=== PATIENT | female | born 1980 | race Caucasian/White ===

== ENCOUNTER 2019-07-21 12:59 | Outpatient (CLI) | payer OTHER ==
[2019-07-21 13:47] VITALS: BP 126/77
--- NOTE | 2019-07-23 12:29 | PROCEDURE REPORT ---
- HPI Diagnosis/Indication for NST: Polyhydramnios (32.2 weeks) Current EDU 09/13/19 Gestation 32 Weeks and 2 Days 4 Para 3 Vital Signs Temperature 36.7 C 07/21/19 13:03 Heart Rate 106 H 07/21/19 13:03 Respiratory Rate 07/21/19 13:03 Blood Pressure 126/77 07/21/19 13:03 O2 Saturation 99 07/21/19 13:03 Temperature 36.7 C 07/21/19 13:03 Heart Rate 106 H 07/21/19 13:03 Respiratory Rate 07/21/19 13:03 Blood Pressure 126/77 07/21/19 13:03 O2 Saturation 99 07/21/19 13:03 - NST Procedure NST Procedure Start Date 07/21/19 Start Time 13:00 Stop Time 13:59 Vibroacoustic Stimulation Used Yes Patient States Movement Yes - Results and Plan Findings/Impression: reactive NST continue serial NST
== END 2019-07-21 14:10 | disposition home or self-care (01) ==
LOC: WFO 12:59 → FBP 13:06 → WFO 14:10
PROVIDERS: ATTEND Obstetrics & Gynecology
DX: O40.3XX0 Polyhydramnios, third trimester, not applicable or unspecified (principal); Z3A.32 32 weeks gestation of pregnancy
CPT/HCPCS: 59025

== ENCOUNTER 2019-07-28 13:11 | Outpatient (CLI) | payer OTHER ==
[2019-07-28 14:33] VITALS: BP 126/78
--- NOTE | 2019-07-28 15:15 | PROCEDURE REPORT ---
- HPI Diagnosis/Indication for NST: Other (AMA/CHTN/Graves Disease) Current EDU 09/13/19 Gestation 33 Weeks and 2 Days 4 Para 3 Vital Signs Temperature 99.1 F 07/28/19 13:02 Heart Rate 93 07/28/19 13:02 Respiratory Rate 18 07/28/19 13:02 Blood Pressure 137/73 H 07/28/19 13:02 Temperature 99.1 F 07/28/19 13:02 Heart Rate 86 07/28/19 13:27 Respiratory Rate 18 07/28/19 13:27 Blood Pressure 126/78 07/28/19 13:27 O2 Saturation - NST Procedure NST Procedure Start Date 07/28/19 Start Time 13:00 Stop Time 13:35 Vibroacoustic Stimulation Used No Patient States Movement No 135 mod susi 15x15 accels no decels TOCO; Quiet - Results and Plan Findings/Impression: Patient is a 39 at 33+3 wga with complicated by AMA, CHTN, Graves Dz here for NST Cat I tracing Has fu appt with Dr. Pedraza on 07/30/19 Cont twice weekly NST
== END 2019-07-28 13:40 | disposition home or self-care (01) ==
LOC: WFO 13:11 → FBP 13:14 → WFO 13:40
PROVIDERS: ATTEND Obstetrics & Gynecology
DX: O10.913 Unspecified pre-existing hypertension complicating pregnancy, third trimester (principal); O99.283 Endocrine, nutritional and metabolic diseases complicating pregnancy, third trimester; E05.00 Thyrotoxicosis with diffuse goiter without thyrotoxic crisis or storm; O09.523 Supervision of elderly multigravida, third trimester; Z3A.33 33 weeks gestation of pregnancy
CPT/HCPCS: 59025

== ENCOUNTER 2019-08-12 08:00 | Outpatient (CLI) | payer OTHER ==
[2019-08-12 18:52] LABS: TRICHOMONAS VAGINALIS DNA NEGATIVE (NEGATIVE)
== END 2019-08-12 23:59 | disposition home or self-care (01) ==
LOC: LAB.R 08:00
PROVIDERS: ATTEND Obstetrics & Gynecology
DX: Z36.85 Encounter for antenatal screening for Streptococcus B (principal)
CPT/HCPCS: 87491; 87591; 87661; 87797

== ENCOUNTER 2019-08-15 15:03 | Outpatient (CLI) | payer OTHER ==
--- NOTE | 2019-08-17 04:15 | Ultrasound Report ---
Reason: CHRONIC HYPERTENSION/HIGH RISK Procedure Date: 08/15/2019 Accession Number: [id number] / [id number] Procedure: US - OB F/U or Repeat CPT Code: Final Report FULL RESULT: EXAM: FOLLOW-UP OBSTETRICAL ULTRASOUND EXAM DATE: 08/15/2019 03:55 PM. CLINICAL HISTORY: CHRONIC HYPERTENSION/HIGH RISK. COMPARISON: Reports of previous ultrasound dated 04/25/2019 from [facility], 05/02/2019 and 05/08/2019 from [facility]. TECHNIQUE: Real-time sonographic evaluation of the fetus performed by the medical assistant dermatology. Multiple practice representative static images were saved for review. DATING: Established EGA 36 weeks 0 days with JOSÉ MIGUEL 09/12/2019 based on LMP. EGA 36 weeks 2 days with JOSÉ MIGUEL 09/10/2019 based on the current ultrasound. GENERAL EVALUATION [place] . Cardiac activity: 135 bpm. movement: Visualized. Presentation: Cephalic. Placenta: Anterior position. Amniotic fluid: Normal. FELICIA 17.5 cm. MVP 4.9 cm. BIOMETRY Bi-Parietal Diameter (BPD): 9 cm, 36 weeks 3 days Head Circumference (HC): 32.52 cm, 36 weeks 6 days Abdominal Circumference (AC): 33.2 cm, 37 weeks 1 day Femur Length (FL): 6.7 cm, 34 weeks 5 days Estimated Weight: 2928 g, 62nd percentile for 36 weeks 0 days. IMPRESSION: 1. [place] live intrauterine with gestational age 36 weeks 0 days based on LMP. 2. Estimated weight is within expected limits for assigned dating. 3. Normal interval growth compared to 04/25/2019. STEVIE
== END 2019-08-15 15:04 | disposition home or self-care (01) ==
LOC: DI 15:03
PROVIDERS: ATTEND Obstetrics & Gynecology
DX: O10.913 Unspecified pre-existing hypertension complicating pregnancy, third trimester (principal); Z3A.36 36 weeks gestation of pregnancy
CPT/HCPCS: 76816

== ENCOUNTER 2019-08-25 12:39 | Outpatient (CLI) | payer OTHER ==
[2019-08-25 12:50] VITALS: BP 127/68
--- NOTE | 2019-08-27 09:41 | PROCEDURE REPORT ---
- HPI Diagnosis/Indication for NST: Pre- Hypertension (pt on labetolol) Current EDU 09/12/19 Gestation 37 Weeks and 3 Days 4 Para 3 Vital Signs Temperature 37.3 C 08/25/19 12:45 Heart Rate 93 08/25/19 12:45 Respiratory Rate 08/25/19 12:45 Blood Pressure 127/68 08/25/19 12:45 O2 Saturation 97 08/25/19 12:45 Temperature 37.3 C 08/25/19 12:45 Heart Rate 93 08/25/19 12:45 Respiratory Rate 08/25/19 12:45 Blood Pressure 127/68 08/25/19 12:45 O2 Saturation 97 08/25/19 12:45 - NST Procedure NST Procedure Start Date 08/25/19 Start Time 12:41 Stop Time 12:03 Vibroacoustic Stimulation Used No Patient States Movement Yes - Results and Plan Findings/Impression: reactive baseline 145 accelerations Plan: continue NST induce at 39 weeks
== END 2019-08-25 13:14 | disposition home or self-care (01) ==
LOC: WFO 12:39 → FBP 12:40 → WFO 13:14
PROVIDERS: ATTEND Obstetrics & Gynecology
DX: O10.913 Unspecified pre-existing hypertension complicating pregnancy, third trimester (principal); Z3A.37 37 weeks gestation of pregnancy
CPT/HCPCS: 59025

== ENCOUNTER 2019-08-28 13:02 | Outpatient (CLI) | payer OTHER ==
[2019-08-28 13:09] VITALS: BP 128/70
--- NOTE | 2019-09-17 12:05 | PROCEDURE REPORT ---
- HPI Diagnosis/Indication for NST: Other (AMA, CHTN) Current EDU 09/12/19 Gestation 37 Weeks and 6 Days 4 Para 3 Vital Signs Temperature 98.8 F 08/28/19 13:07 Heart Rate 82 08/28/19 13:07 Respiratory Rate 18 08/28/19 13:07 Blood Pressure 128/70 08/28/19 13:07 O2 Saturation 98 08/28/19 13:07 Temperature 98.8 F 08/28/19 13:07 Heart Rate 82 08/28/19 13:07 Respiratory Rate 18 08/28/19 13:07 Blood Pressure 128/70 08/28/19 13:07 O2 Saturation 98 08/28/19 13:07 - NST Procedure NST Procedure Start Date 08/28/19 Start Time 13:00 Stop Time 13:26 Vibroacoustic Stimulation Used No Patient States Movement Yes EFM 135 mod suis 15x15 accels no decels TOCO: quiet - Results and Plan Findings/Impression: 39 yo at 37+6 wga here for NST for CHTN and AMA BP wnl Cat I tracing Cont with twice weekly NST and weekly FELICIA IOL at 39 wga
== END 2019-08-28 13:30 | disposition home or self-care (01) ==
LOC: WFO 13:02 → FBP 13:03 → WFO 13:30
PROVIDERS: ATTEND Obstetrics & Gynecology
DX: O09.523 Supervision of elderly multigravida, third trimester (principal); O10.913 Unspecified pre-existing hypertension complicating pregnancy, third trimester; Z3A.37 37 weeks gestation of pregnancy
CPT/HCPCS: 59025

== ENCOUNTER 2019-09-01 13:00 | Outpatient (CLI) | payer OTHER ==
[2019-09-01 13:14] VITALS: BP 121/71
--- NOTE | 2019-09-04 17:03 | PROCEDURE REPORT ---
- HPI Diagnosis/Indication for NST: Gestational Hypertension Current EDU 09/12/19 Gestation 38 Weeks and 3 Days 4 Para 3 Vital Signs Temperature 37.5 C 09/01/19 13:12 Heart Rate 74 09/01/19 13:12 Respiratory Rate 18 09/01/19 13:12 Blood Pressure 121/71 09/01/19 13:12 O2 Saturation 100 09/01/19 13:12 Temperature 37.5 C 09/01/19 13:12 Heart Rate 74 09/01/19 13:12 Respiratory Rate 18 09/01/19 13:12 Blood Pressure 121/71 09/01/19 13:12 O2 Saturation 100 09/01/19 13:12 - NST Procedure NST Procedure Start Date 09/01/19 Start Time 13:03 Stop Time 13:27 Vibroacoustic Stimulation Used No Patient States Movement Yes - Results and Plan Findings/Impression: reactive nst. Plan: continue antinatal testing
== END 2019-09-01 13:30 | disposition home or self-care (01) ==
LOC: WFO 13:00 → FBP 13:01 → WFO 13:30
PROVIDERS: ATTEND Obstetrics & Gynecology
DX: O24.419 Gestational diabetes mellitus in pregnancy, unspecified control (principal); Z3A.38 38 weeks gestation of pregnancy
CPT/HCPCS: 59025

== ENCOUNTER 2019-09-04 13:05 | Outpatient (CLI) | payer OTHER ==
[2019-09-04 13:11] VITALS: BP 121/68
--- NOTE | 2019-09-17 14:49 | PROCEDURE REPORT ---
- HPI Diagnosis/Indication for NST: Gestational Hypertension Current EDU 09/12/19 Gestation 38 Weeks and 6 Days 4 Para 3 Vital Signs Temperature 36.9 C 09/04/19 13:09 Heart Rate 80 09/04/19 13:09 Respiratory Rate 18 09/04/19 13:09 Blood Pressure 121/68 09/04/19 13:09 O2 Saturation 98 09/04/19 13:09 Temperature 36.9 C 09/04/19 13:09 Heart Rate 80 09/04/19 13:09 Respiratory Rate 18 09/04/19 13:09 Blood Pressure 121/68 09/04/19 13:09 O2 Saturation 98 09/04/19 13:09 - NST Procedure NST Procedure Start Date 09/04/19 Start Time 13:05 Stop Time 13:25 Vibroacoustic Stimulation Used No Patient States Movement Yes - Results and Plan Findings/Impression: reactive NST Plan: Induction tomorrow
== END 2019-09-04 13:35 | disposition home or self-care (01) ==
LOC: WFO 13:05 → FBP 13:07 → WFO 13:35
PROVIDERS: ATTEND Obstetrics & Gynecology
DX: O24.419 Gestational diabetes mellitus in pregnancy, unspecified control (principal); Z3A.38 38 weeks gestation of pregnancy
CPT/HCPCS: 59025

== ENCOUNTER 2019-09-09 14:29 | Observation (INO) | payer OTHER ==
[2019-09-09] MEDS ORDERED: ACETAMINOPHEN 500 MG TABLET PO ONE (14:58)
[2019-09-09] MEDS ORDERED: LABETALOL 20 MG/4 ML SYRINGE IVP ONE (15:07)
[2019-09-09 15:21] LABS: HGB - HEMOGLOBIN 9.5 g/dL (12.0-16.0); MEAN CORPUSCULAR HEMOGLOBIN 28.6 pg (27.0-31.0); MEAN CORPUSCULAR VOLUME 89.5 fL (81.0-99.0); MEAN PLATELET VOLUME 9.2 fL (7.9-10.8); RED BLOOD COUNT 3.32 10^6/uL (4.20-5.40); RED CELL DISTRIBUTION WIDTH 16.2 % (12.0-15.0); WHITE BLOOD COUNT 8.6 x10^3/uL (4.8-10.8)
--- NOTE | 2019-09-09 15:28 | HISTORY & PHYSICAL EXAMINATION ---
Admit History - Visit Reason Visit Reason: Other (39yo POD 4 from unscheduled urgent LTCS in the second stage of labor for non-reassuring status. Her was complicated by chronic HTN on labetalol 200BID, AMA, obesity, h/o Grave's disease, fibromyalgia. Her post op course was uncomplicated and she had no evidence of superimposed preeclampsia. She presented to the nav clinic for a wound check today and was found to have SBP>160. On presentation here, she c/o headache and epigastric pain that started today. No visual changes or vomiting. No fever or respiratory complaints. No dysuria. Normal lochia. Has been taking prescribed pain meds, took ibuprofen and oxycodone within the last 2 hours. No abnormal incisional pain.) - : 4 Parity: 4 Premature: 0 Ectopic: 0 : 0 Care: positive: IWHCARIELLE-Julien Complications This : positive: Other (See above) Smoking Status: Never smoker - Mother's Labs Mother's Blood Type: positive: O Mother's RH: positive: Negative Meds/Allgy - Home Medications Home Medications: Ambulatory Orders Medication Instructions Recorded Confirmed Cetirizine [ZyrTEC] 10 mg PO DAILY 09/09/19 09/09/19 DULoxetine [Cymbalta] 60 mg PO DAILY 09/09/19 09/09/19 Gabapentin [Neurontin] 600 mg PO BID 09/09/19 09/09/19 Ibuprofen [Ibu] 600 mg PO Q6HR PRN 09/09/19 09/09/19 Labetalol [Trandate] 200 mg PO BID 09/09/19 09/09/19 Omeprazole 10 mg PO DAILY 09/09/19 09/09/19 Vit,Calc76/Iron/Folic 1 tab PO DAILY 09/09/19 09/09/19 [Pnv 29-1 Tablet] Sertraline [Zoloft] 75 mg PO DAILY 09/09/19 09/09/19 oxyCODONE [Roxicodone] 5 mg PO Q4-6H PRN 09/09/19 09/09/19 - Allergies Allergies/Adverse Reactions: Allergies Allergy/AdvReac Type Severity Reaction Status Date / Time No Known Drug Allergies Allergy Verified 03/26/15 00:54 Review of Systems - All Other Systems All Other Systems: reports: Other (As noted; otherwise negative) Physical - Abdominal Exam Vital Signs: Temp Pulse Resp BP Pulse Ox 99.5 F 93 22 161/80 H 98 09/09/19 14:35 09/09/19 14:35 09/09/19 14:35 09/09/19 14:40 09/09/19 14:35 Plan for Labor - Plan For Labor Plan for Labor: 39yo POD 4 from unscheduled , previously stable chronic HTN, now with markedly elevated BP in severe range, headache, epigastric pain. Labs sent. Start magnesium, IV labetalol/hydralazine as needed to control BP w goal <130/80. IV fluid Monitor urine output. Exam - Exam Vital Signs: Vital Signs (72 hours) 09/09/19 09/09/19 14:35 14:40 Temperature 99.5 F Heart Rate [ 93 Monitoring electrodes] Respiratory 22 Rate Blood Pressure 165/83 H 161/80 H [Left Brachial artery] Blood Pressure 172/85 H [Right Brachial artery] O2 Saturation 98 General: Alert, Oriented x3, Mild distress Lungs: Clear to auscultation, Normal air movement Cardiovascular: Regular rate (3/6 systolic murmur at upper left sternal border, tachycardia) Abdomen: Soft, No tenderness, Other (Uterus well below umbilicus, incision D&I, no erythem or induration) Extremities: No tenderness/swelling (trace bipedal edema) Neurological: Normal gait, Normal speech Psych/Mental Status: Mental status NL
[2019-09-09 15:35] LABS: ALBUMIN 2.8 g/dL (3.2-5.5); ALBUMIN/GLOBULIN RATIO 0.8 (1.0-2.2); BILIRUBIN,TOTAL 0.5 mg/dL (0.2-1.0); CALCIUM 8.7 mg/dL (8.5-10.3); CREATININE 0.6 mg/dL (0.4-1.0); TOTAL PROTEIN 6.4 g/dL (6.7-8.2)
[2019-09-09] MEDS: LACTATED RINGERS 1,000 ML IV SCH ×2 (15:54→21:24)
[2019-09-09] MEDS: MAGNESIUM SULFATE 2 GRAM 2 GM/50 ML BAG IV SCH ×2 (15:58→16:28)
[2019-09-09] MEDS ORDERED: MAGNESIUM SULFATE IN WATER 20 GM/500 ML IV.SOLN IV SCH (16:00)
--- NOTE | 2019-09-09 16:21 | PROVIDER PROGRESS NOTE ---
Subjective - Prog Note Date Prog Note Date: 09/09/19 Prog Note Time: 16:20 - Subjective Subjective: Feeling better. She reports contractions have decreased in frequency, duration and intensity since fluid bolus. Iron infusing now. Off monitor. Will continue to follow, DC home if feeling well. Objective - Vital Signs/Intake & Output Vital Signs: Vital Signs x48h Temp Pulse Resp BP BP Pulse Ox 09/09/19 14:40 161/80 H 09/09/19 14:35 99.5 F 93 22 165/83 H 172/85 H 98 - Lab Results Fish Bones: 09/09/19 15:14 09/09/19 15:14 Other Labs: Lab Results x24hrs 09/09/19 09/09/19 09/09/19 Range/Units 15:14 15:14 15:14 WBC 8.6 (4.8-10.8) x10^3/uL RBC 3.32 L (4.20-5.40) 10^6/uL Hgb 9.5 L (12.0-16.0) g/dL Hct 29.7 L (37.0-47.0) % MCV 89.5 (81.0-99.0) fL MCH 28.6 (27.0-31.0) pg MCHC 32.0 (32.0-36.0) g/dL RDW 16.2 H (12.0-15.0) % Plt Count 324 (130-450) 10^3/uL MPV 9.2 (7.9-10.8) fL Sodium 137 (135-145) mmol/L Potassium 3.6 (3.5-5.0) mmol/L Chloride 102 (101-111) mmol/L Carbon Dioxide 26 (21-32) mmol/L Anion Gap 9.0 (6-13) BUN 6 (6-20) mg/dL Creatinine 0.6 (0.4-1.0) mg/dL Estimated GFR (MDRD) 111 (>89) Glucose 90 (70-100) mg/dL Uric Acid 3.9 (2.6-7.2) mg/dL Calcium 8.7 (8.5-10.3) mg/dL Total Bilirubin 0.5 (0.2-1.0) mg/dL AST 51 H (10-42) IU/L ALT 48 (10-60) IU/L Alkaline Phosphatase 120 (42-121) IU/L Total Protein 6.4 L (6.7-8.2) g/dL Albumin 2.8 L (3.2-5.5) g/dL Globulin 3.6 (2.1-4.2) g/dL Albumin/Globulin Ratio 0.8 L (1.0-2.2)
[2019-09-09] MEDS ORDERED: IRON DEXTRAN 1,000 MG in SODIUM CHLORIDE 0.9% 250 ML IV ONE (16:29)
--- NOTE | 2019-09-09 16:31 | PROVIDER PROGRESS NOTE ---
Subjective - Prog Note Date Prog Note Date: 09/09/19 Prog Note Time: 16:30 - Subjective Subjective: Labs reviewed. Elevated AST although not quite to twice upper limit of normal. Anemia noted: will give IV iron Add PO nifedipine Objective - Vital Signs/Intake & Output Vital Signs: Vital Signs x48h Temp Pulse Resp BP BP Pulse Ox 09/09/19 14:40 161/80 H 09/09/19 14:35 99.5 F 93 22 165/83 H 172/85 H 98 09/09/19 14:30 210.4 F H 93 18 172/85 H 100 Intake & Output: Intake & Output 09/06/19 09/07/19 09/08/19 09/09/19 23:59 23:59 23:59 23:59 Intake Total 50 Balance 50 - Lab Results Fish Bones: 09/09/19 15:14 09/09/19 15:14 Other Labs: Lab Results x24hrs 09/09/19 09/09/19 09/09/19 Range/Units 15:14 15:14 15:14 WBC 8.6 (4.8-10.8) x10^3/uL RBC 3.32 L (4.20-5.40) 10^6/uL Hgb 9.5 L (12.0-16.0) g/dL Hct 29.7 L (37.0-47.0) % MCV 89.5 (81.0-99.0) fL MCH 28.6 (27.0-31.0) pg MCHC 32.0 (32.0-36.0) g/dL RDW 16.2 H (12.0-15.0) % Plt Count 324 (130-450) 10^3/uL MPV 9.2 (7.9-10.8) fL Sodium 137 (135-145) mmol/L Potassium 3.6 (3.5-5.0) mmol/L Chloride 102 (101-111) mmol/L Carbon Dioxide 26 (21-32) mmol/L Anion Gap 9.0 (6-13) BUN 6 (6-20) mg/dL Creatinine 0.6 (0.4-1.0) mg/dL Estimated GFR (MDRD) 111 (>89) Glucose 90 (70-100) mg/dL Uric Acid 3.9 (2.6-7.2) mg/dL Calcium 8.7 (8.5-10.3) mg/dL Total Bilirubin 0.5 (0.2-1.0) mg/dL AST 51 H (10-42) IU/L ALT 48 (10-60) IU/L Alkaline Phosphatase 120 (42-121) IU/L Total Protein 6.4 L (6.7-8.2) g/dL Albumin 2.8 L (3.2-5.5) g/dL Globulin 3.6 (2.1-4.2) g/dL Albumin/Globulin Ratio 0.8 L (1.0-2.2)
[2019-09-09 17:07] LABS: BILIRUBIN,URINE NEGATIVE (NEGATIVE); GLUCOSE, URINE (UA) NEGATIVE (NEGATIVE); KETONES,URINE (UA) NEGATIVE (NEGATIVE); LEUKOCYTE ESTERASE, URINE NEGATIVE (NEGATIVE); NITRITE,URINE NEGATIVE (NEGATIVE); OCCULT BLOOD,URINE LARGE (NEGATIVE); PH,URINE 7.5 PH (5.0-7.5); PROTEIN,URINE NEGATIVE (NEGATIVE); UROBILINOGEN,URINE 0.2 (NORMAL) E.U./dL (NORMAL)
[2019-09-09 17:13] LABS: CLARITY,URINE CLOUDY (CLEAR)
[2019-09-09 17:18] LABS: CREATININE,URINE 57.4 mg/dL; PROTEIN/CREATININE RATIO,URINE 0.5 (<=0.2)
[2019-09-09] MEDS ORDERED: ONDANSETRON 4 MG/2 ML VIAL IVP PRN (17:27)
[2019-09-09] MEDS: NIFEdipine ER 30 MG TABLET PO SCH (17:59)
--- NOTE | 2019-09-09 18:39 | PROVIDER PROGRESS NOTE ---
Subjective - Prog Note Date Prog Note Date: 09/09/19 Prog Note Time: 18:33 - Subjective Subjective: Pt complains of worsening headache since admission. Epigastric pain improved. Also c/o left shoulder pain with radiation down her arm for the past few days, worse today. Feeling sharp, tingly pain. No numbness. BP's 140's/90's Nifedipine just given No obvious lesion involving shoulder/arm. Strength normal and equal throughout. Labs PC ratio 0.5 Otherwise as noted. A/P Severe preeclampsia by symptom and BP criteria. Continue magnesium. Nifedipine started. Add labetalol as needed. Will try toredol, muscle relaxant and heat for left shoulder/neck/arm and then reevaluate. Objective - Vital Signs/Intake & Output Vital Signs: Vital Signs x48h Temp Pulse Resp BP BP Pulse Ox 09/09/19 18:00 93 20 141/90 H 96 09/09/19 17:46 99.1 F 102 H 16 140/84 H 96 09/09/19 17:30 97 16 149/82 H 99 09/09/19 17:05 98.6 F 94 20 139/73 H 95 09/09/19 16:33 75 18 131/73 H 99 09/09/19 16:30 81 18 142/78 H 99 09/09/19 16:15 98.4 F 78 16 135/76 H 99 09/09/19 15:46 72 18 148/91 H 98 09/09/19 14:45 89 18 154/77 H 97 09/09/19 14:42 91 18 161/80 H 98 09/09/19 14:40 161/80 H 09/09/19 14:37 165/83 H 09/09/19 14:35 99.5 F 93 22 165/83 H 172/85 H 98 09/09/19 14:30 210.4 F H 93 18 172/85 H 100 Intake & Output: Intake & Output 09/06/19 09/07/19 09/08/19 09/09/19 23:59 23:59 23:59 23:59 Intake Total 50 Balance 50 - Lab Results Fish Bones: 09/09/19 15:14 09/09/19 15:14 Other Labs: Lab Results x24hrs 09/09/19 09/09/19 09/09/19 Range/Units 16:48 16:48 15:14 WBC (4.8-10.8) x10^3/uL RBC (4.20-5.40) 10^6/uL Hgb (12.0-16.0) g/dL Hct (37.0-47.0) % MCV (81.0-99.0) fL MCH (27.0-31.0) pg MCHC (32.0-36.0) g/dL RDW (12.0-15.0) % Plt Count (130-450) 10^3/uL MPV (7.9-10.8) fL Sodium (135-145) mmol/L Potassium (3.5-5.0) mmol/L Chloride (101-111) mmol/L Carbon Dioxide (21-32) mmol/L Anion Gap (6-13) BUN (6-20) mg/dL Creatinine (0.4-1.0) mg/dL Estimated GFR (MDRD) (>89) Glucose (70-100) mg/dL Uric Acid 3.9 (2.6-7.2) mg/dL Calcium (8.5-10.3) mg/dL Total Bilirubin (0.2-1.0) mg/dL AST (10-42) IU/L ALT (10-60) IU/L Alkaline Phosphatase (42-121) IU/L Total Protein (6.7-8.2) g/dL Albumin (3.2-5.5) g/dL Globulin (2.1-4.2) g/dL Albumin/Globulin Ratio (1.0-2.2) Urine Color YELLOW Urine Clarity CLOUDY (CLEAR) Urine pH 7.5 (5.0-7.5) PH Ur Specific [place] 1.020 (1.002-1.030) Urine Protein NEGATIVE (NEGATIVE) mg/dL Urine Glucose (UA) NEGATIVE (NEGATIVE) mg/dL Urine Ketones NEGATIVE (NEGATIVE) mg/dL Urine Occult Blood LARGE H (NEGATIVE) Urine Nitrite NEGATIVE (NEGATIVE) Urine Bilirubin NEGATIVE (NEGATIVE) Urine Urobilinogen 0.2 (NORMAL) (NORMAL) E.U./dL Ur Leukocyte Esterase NEGATIVE (NEGATIVE) Urine Creatinine 57.4 mg/dL Ur Total Protein Timed 28 mg/dL Protein/Creatinin Ratio 0.5 H (<=0.2) 09/09/19 09/09/19 Range/Units 15:14 15:14 WBC 8.6 (4.8-10.8) x10^3/uL RBC 3.32 L (4.20-5.40) 10^6/uL Hgb 9.5 L (12.0-16.0) g/dL Hct 29.7 L (37.0-47.0) % MCV 89.5 (81.0-99.0) fL MCH 28.6 (27.0-31.0) pg MCHC 32.0 (32.0-36.0) g/dL RDW 16.2 H (12.0-15.0) % Plt Count 324 (130-450) 10^3/uL MPV 9.2 (7.9-10.8) fL Sodium 137 (135-145) mmol/L Potassium 3.6 (3.5-5.0) mmol/L Chloride 102 (101-111) mmol/L Carbon Dioxide 26 (21-32) mmol/L Anion Gap 9.0 (6-13) BUN 6 (6-20) mg/dL Creatinine 0.6 (0.4-1.0) mg/dL Estimated GFR (MDRD) 111 (>89) Glucose 90 (70-100) mg/dL Uric Acid (2.6-7.2) mg/dL Calcium 8.7 (8.5-10.3) mg/dL Total Bilirubin 0.5 (0.2-1.0) mg/dL AST 51 H (10-42) IU/L ALT 48 (10-60) IU/L Alkaline Phosphatase 120 (42-121) IU/L Total Protein 6.4 L (6.7-8.2) g/dL Albumin 2.8 L (3.2-5.5) g/dL Globulin 3.6 (2.1-4.2) g/dL Albumin/Globulin Ratio 0.8 L (1.0-2.2) Urine Color Urine Clarity (CLEAR) Urine pH (5.0-7.5) PH Ur Specific [place] (1.002-1.030) Urine Protein (NEGATIVE) mg/dL Urine Glucose (UA) (NEGATIVE) mg/dL Urine Ketones (NEGATIVE) mg/dL Urine Occult Blood (NEGATIVE) Urine Nitrite (NEGATIVE) Urine Bilirubin (NEGATIVE) Urine Urobilinogen (NORMAL) E.U./dL Ur Leukocyte Esterase (NEGATIVE) Urine Creatinine mg/dL Ur Total Protein Timed mg/dL Protein/Creatinin Ratio (<=0.2)
[2019-09-09] MEDS ORDERED: LIDOCAINE PATCH 5% TOP PRN (18:42)
[2019-09-09] MEDS ORDERED: tiZANidine 4 MG TABLET PO PRN (18:44)
[2019-09-09] MEDS ORDERED: PROMETHAZINE INJ 25 MG in SODIUM CHLORIDE 0.9% 50 ML IV PRN (19:40)
[2019-09-09] MEDS ORDERED: FAMOTIDINE 20 MG TABLET PO SCH (21:00)
[2019-09-09] MEDS: GABAPENTIN 300 MG CAPSULE PO SCH (21:25)
[2019-09-09] MEDS: KETOROLAC 30 MG/ML VIAL IVP SCH (21:25)
[2019-09-09] MEDS: oxyCODONE 5 MG TABLET PO PRN (21:25)
[2019-09-09] MEDS ORDERED: ACETAMINOPHEN 325 MG TABLET PO PRN (22:00)
[2019-09-10] MEDS: KETOROLAC 30 MG/ML VIAL IVP SCH (03:31)
[2019-09-10] MEDS: oxyCODONE 5 MG TABLET PO PRN (06:17)
[2019-09-10] MEDS ORDERED: PANTOPRAZOLE 40 MG TABLET PO SCH (07:00)
[2019-09-10] MEDS: LACTATED RINGERS 1,000 ML IV SCH (07:15)
[2019-09-10] MEDS ORDERED: PRENATAL VITAMIN TABLET PO SCH (08:00)
[2019-09-10] MEDS ORDERED: SERTRALINE 25 MG TABLET PO SCH (09:00)
[2019-09-10] MEDS ORDERED: DULoxetine 30 MG CAPSULE PO SCH (09:00)
[2019-09-10] MEDS ORDERED: CETIRIZINE 10 MG TABLET PO SCH (09:00)
[2019-09-10] MEDS: NIFEdipine ER 30 MG TABLET PO SCH (09:02)
[2019-09-10] MEDS: GABAPENTIN 300 MG CAPSULE PO SCH (09:03)
--- NOTE | 2019-09-10 09:15 | PROVIDER PROGRESS NOTE ---
Subjective - Prog Note Date Prog Note Date: 09/10/19 Prog Note Time: 09:09 - Subjective Subjective: Feeling much better. Headache gone. No epigastric pain. Shoulder also much improved. BP max 142/74 otherwise 120's/70's Pulse slightly tachy 100-110 sats 95-96 on RA Abd soft, non-tender. No RUQ or epigastric tenderness. A/P Stable. Continue nifedipine with labetalol and her usual meds. Temporarily continue lidocaine patch and muscle relaxant with heat. She will check BP's at home. Precautions discussed. Objective - Vital Signs/Intake & Output Vital Signs: Vital Signs x48h Temp Pulse Resp BP Pulse Ox 09/10/19 08:30 97.7 F 102 H 16 126/63 94 09/10/19 06:18 97.7 F 111 H 16 124/72 95 09/10/19 04:06 18 09/10/19 03:36 109 H 16 125/62 96 09/10/19 02:00 108 H 16 140/74 H 95 Intake & Output: Intake & Output 09/07/19 09/08/19 09/09/19 09/10/19 23:59 23:59 23:59 23:59 Intake Total 2790 1483.333 Output Total 2500 3300 Balance 290 -1816.667 - Lab Results Fish Bones: 09/09/19 15:14 09/09/19 15:14 Other Labs: Lab Results x24hrs 09/09/19 09/09/19 09/09/19 Range/Units 16:48 16:48 15:14 WBC (4.8-10.8) x10^3/uL RBC (4.20-5.40) 10^6/uL Hgb (12.0-16.0) g/dL Hct (37.0-47.0) % MCV (81.0-99.0) fL MCH (27.0-31.0) pg MCHC (32.0-36.0) g/dL RDW (12.0-15.0) % Plt Count (130-450) 10^3/uL MPV (7.9-10.8) fL Sodium (135-145) mmol/L Potassium (3.5-5.0) mmol/L Chloride (101-111) mmol/L Carbon Dioxide (21-32) mmol/L Anion Gap (6-13) BUN (6-20) mg/dL Creatinine (0.4-1.0) mg/dL Estimated GFR (MDRD) (>89) Glucose (70-100) mg/dL Uric Acid 3.9 (2.6-7.2) mg/dL Calcium (8.5-10.3) mg/dL Total Bilirubin (0.2-1.0) mg/dL AST (10-42) IU/L ALT (10-60) IU/L Alkaline Phosphatase (42-121) IU/L Total Protein (6.7-8.2) g/dL Albumin (3.2-5.5) g/dL Globulin (2.1-4.2) g/dL Albumin/Globulin Ratio (1.0-2.2) Urine Color YELLOW Urine Clarity CLOUDY (CLEAR) Urine pH 7.5 (5.0-7.5) PH Ur Specific [place] 1.020 (1.002-1.030) Urine Protein NEGATIVE (NEGATIVE) mg/dL Urine Glucose (UA) NEGATIVE (NEGATIVE) mg/dL Urine Ketones NEGATIVE (NEGATIVE) mg/dL Urine Occult Blood LARGE H (NEGATIVE) Urine Nitrite NEGATIVE (NEGATIVE) Urine Bilirubin NEGATIVE (NEGATIVE) Urine Urobilinogen 0.2 (NORMAL) (NORMAL) E.U./dL Ur Leukocyte Esterase NEGATIVE (NEGATIVE) Urine Creatinine 57.4 mg/dL Ur Total Protein Timed 28 mg/dL Protein/Creatinin Ratio 0.5 H (<=0.2) 09/09/19 09/09/19 Range/Units 15:14 15:14 WBC 8.6 (4.8-10.8) x10^3/uL RBC 3.32 L (4.20-5.40) 10^6/uL Hgb 9.5 L (12.0-16.0) g/dL Hct 29.7 L (37.0-47.0) % MCV 89.5 (81.0-99.0) fL MCH 28.6 (27.0-31.0) pg MCHC 32.0 (32.0-36.0) g/dL RDW 16.2 H (12.0-15.0) % Plt Count 324 (130-450) 10^3/uL MPV 9.2 (7.9-10.8) fL Sodium 137 (135-145) mmol/L Potassium 3.6 (3.5-5.0) mmol/L Chloride 102 (101-111) mmol/L Carbon Dioxide 26 (21-32) mmol/L Anion Gap 9.0 (6-13) BUN 6 (6-20) mg/dL Creatinine 0.6 (0.4-1.0) mg/dL Estimated GFR (MDRD) 111 (>89) Glucose 90 (70-100) mg/dL Uric Acid (2.6-7.2) mg/dL Calcium 8.7 (8.5-10.3) mg/dL Total Bilirubin 0.5 (0.2-1.0) mg/dL AST 51 H (10-42) IU/L ALT 48 (10-60) IU/L Alkaline Phosphatase 120 (42-121) IU/L Total Protein 6.4 L (6.7-8.2) g/dL Albumin 2.8 L (3.2-5.5) g/dL Globulin 3.6 (2.1-4.2) g/dL Albumin/Globulin Ratio 0.8 L (1.0-2.2) Urine Color Urine Clarity (CLEAR) Urine pH (5.0-7.5) PH Ur Specific [place] (1.002-1.030) Urine Protein (NEGATIVE) mg/dL Urine Glucose (UA) (NEGATIVE) mg/dL Urine Ketones (NEGATIVE) mg/dL Urine Occult Blood (NEGATIVE) Urine Nitrite (NEGATIVE) Urine Bilirubin (NEGATIVE) Urine Urobilinogen (NORMAL) E.U./dL Ur Leukocyte Esterase (NEGATIVE) Urine Creatinine mg/dL Ur Total Protein Timed mg/dL Protein/Creatinin Ratio (<=0.2)
--- NOTE | 2019-09-10 09:24 | DISCHARGE SUMMARY ---
Discharge Summary Admit Date: 09/09/19 Discharge Date: 09/10/19 Discharging Provider: Rula Ball Code Status: Attempt Resuscitation Condition at Discharge: Good Discharge Disposition: 01 Home, Self Care - DIAGNOSES Admission Diagnoses: Severe preeclampsia - HPI History of Present Illness: 39yo POD 4 from unscheduled urgent LTCS in the second stage of labor for non-reassuring status. Her was complicated by chronic HTN on labetalol 200BID, AMA, obesity, h/o Grave's disease, fibromyalgia. Her post op course was uncomplicated and she had no evidence of superimposed preeclampsia. [facility] and was found to have SBP>160. On presentation here, she c/o headache and epigastric pain that started today. BP's 160-170's/80-90's. No visual changes or vomiting. No fever or respiratory complaints. No dysuria. Normal lochia. Has been taking prescribed pain meds, took ibuprofen and oxycodone within the last 2 hours. No abnormal incisional pain. - HOSPITAL COURSE Hospital Course: She was started on magnesium and was given oral nifedipine. No IVP antihypertensives were required. Labs showed mild elevation in LFT's that did not reach twice upper limit of normal. She also noted significant left shoulder pain which responded well to heat, lidocaine patch and muscle relaxant so cardiac eval was not undertaken. Her BP's remained stable overnight in the normal range, only one value in mild range. Her headache and epigastric pain resolved. She was DC'd home on nifedipine and labetalol and will check her pressures daily . Precautions were discussed. She had several tearful episodes and depression was also discussed. She feels well for DC and will report worsening feelings of sadness, etc. She has good support at home. F/U w OB provider as scheduled. - ALLERGIES Allergies/Adverse Reactions: Allergies Allergy/AdvReac Type Severity Reaction Status Date / Time No Known Drug Allergies Allergy Verified 03/26/15 00:54 - MEDICATIONS Home Medications: Ambulatory Orders Medication Instructions Recorded Confirmed Cetirizine [ZyrTEC] 10 mg PO DAILY 09/09/19 09/09/19 DULoxetine [Cymbalta] 60 mg PO DAILY 09/09/19 09/09/19 Gabapentin [Neurontin] 600 mg PO BID 09/09/19 09/09/19 Ibuprofen [Ibu] 600 mg PO Q6HR PRN 09/09/19 09/09/19 Labetalol [Trandate] 200 mg PO BID 09/09/19 09/09/19 Omeprazole 10 mg PO DAILY 09/09/19 09/09/19 Vit,Calc76/Iron/Folic 1 tab PO DAILY 09/09/19 09/09/19 [Pnv 29-1 Tablet] Sertraline [Zoloft] 75 mg PO DAILY 09/09/19 09/09/19 oxyCODONE [Roxicodone] 5 mg PO Q4-6H PRN 09/09/19 09/09/19 Lidocaine Patch 5% [Lidoderm Patch] 1 patch TOP DAILY 09/10/19 09/10/19 NIFEdipine [Nifedipine ER] 60 mg PO DAILY 09/10/19 09/10/19 tiZANidine [Zanaflex] 4 mg PO Q8H PRN 09/10/19 09/10/19 - PHYSICAL EXAM AT DISCHARGE General Appearance: positive: No acute distress, Alert Respiratory: positive: No respiratory distress Cardiovascular: positive: Tachycardia Abdomen: positive: Non-tender, No distention Skin: positive: Warm, Dry Extremities: positive: Non-tender, Full ROM Neurologic/Psychiatric: positive: Mood/affect nml - LABS Result Diagrams: 09/09/19 15:14 09/09/19 15:14
--- NOTE | 2019-09-10 09:32 | Discharge Plan ---
Discharge Plan Problem Reviewed?: Yes Disposition: Home, Self Care Condition: Good Prescriptions: Lidocaine Patch 5% [Lidoderm Patch] 1 patch TOP DAILY PRN #7 ea PRN Reason: Pain NIFEdipine [Nifedipine ER] 60 mg PO DAILY #30 ea tiZANidine [Zanaflex] 4 mg PO Q8H PRN #25 tab PRN Reason: Pain Diet: Regular Activity Restrictions: pelvic rest Shower Restrictions: No No Smoking: If you smoke, Please STOP! Call for help.
[2019-09-10 11:06] VITALS: BP 130/67
== END 2019-09-10 11:00 | disposition home or self-care (01) ==
LOC: FBP 14:29 → WFO 14:29 → FBP 15:13 → WFO 16:40 → FBP 16:41
PROVIDERS: ADMIT Obstetrics & Gynecology; ATTEND Obstetrics & Gynecology
DX: O14.15 Severe pre-eclampsia, complicating the puerperium (principal); O90.81 Anemia of the puerperium; O90.89 Other complications of the puerperium, not elsewhere classified; M25.512 Pain in left shoulder; R10.13 Epigastric pain; R01.1 Cardiac murmur, unspecified; R00.0 Tachycardia, unspecified; R51 Headache; O99.215 Obesity complicating the puerperium; E66.9 Obesity, unspecified; R79.89 Other specified abnormal findings of blood chemistry
CPT/HCPCS: 80053; 81003; 82570; 84156; 84550; 85027; 96361; 96365; 96366; 96367; 96368; 96375; 99215; A9270; G0378; J1750; J7120

== ENCOUNTER 2020-02-10 18:16 | Outpatient (CLI) | payer OTHER ==
--- NOTE | 2020-02-13 13:53 | Mammography Report ---
BILATERAL DIGITAL SCREENING MAMMOGRAM 3D/2D: 02/10/2020 CLINICAL: Routine screening. No prior exams were available for comparison. The tissue of both breasts is heterogeneously dense. T his may lower the sensitivity of mammography. Patient complains of a palpable lump at the time of the screening mammogram. No mammographic correlat e is identified. No significant masses, calcifications, or other findings are seen in either breast. IMPRESSION: INCOMPLETE: NEEDS ADDITIONAL IMAGING EVALUATION There is no abnormality seen in the right breast to correspond with the palpable abnormality in the l ower inner quadrant, however, ultrasound is recommended. This exam was interpreted at Station ID: [id number]. NOTE: For mammograms, a report in lay terms will be sent to the patient. Approximately 15% of breast malignancies will not be visualized mammographically. In the management of a palpable breast mass, a negative mammogram must not discourage biopsy of a clinically suspicious lesion. Electronically Signed By: Dario hale/jae:02/12/2020 13:05:38 ACR BI-RADS Category 0: Incomplete 3340F PARENCHYMAL PATTERN: (D) - The breast(s) demonstrate(s) heterogeneously dense fibroglandular pito mcgraw. BI-RADS CATEGORY: (0) - 0 Ultrasound [id number] Immediate follow-up LATERALITY: (R)
== END 2020-02-10 18:17 | disposition home or self-care (01) ==
LOC: DI 18:16
DX: Z12.31 Encounter for screening mammogram for malignant neoplasm of breast (principal)
CPT/HCPCS: 77063; 77067

== ENCOUNTER 2020-10-20 10:27 | Outpatient (CLI) | payer OTHER ==
--- NOTE | 2020-10-22 10:50 | Ultrasound Report ---
LIMITED ULTRASOUND OF RIGHT BREAST: 10/20/2020 CLINICAL: Short term follow up of the right breast. Comparison is made to exams dated: 02/23/2020 ultrasound - [facility] and 02/10/2020 mammogram - [facility]. Color flow ultrasound of the right breast 1 o'clock and 9-10 o'clock regions and color flow and real- time ultrasound of the right breast 1 o'clock and 9-10 o'clock regions were performed on the areas of interest. Smith scale images of the real-time examination were reviewed. There is a stable 0.7 cm x 0.3 cm x 0.6 cm oval mass with circumscribed margins in the right breast a t 9 o'clock middle depth. This oval mass is hypoechoic but of mixed echogenicity with internal echoe s. Color flow imaging demonstrates that there is an adjacent vascularity. There also is a mildly dilated duct in the right breast at 10 o'clock middle depth measuring up to 0. 2 cm. This abnormality is not significantly changed. Color flow imaging demonstrates that there is no vascularity present. Additionally, there is a lymph node in the right axilla with mild smooth cortical thickening measurin g 0.3-0.4 cm. This lymph node is of mixed echogenicity with a fatty hilum. Color flow imaging demon strates that there is no increase in vascularity. In addition, there is a stable benign 0.5 cm x 0.5 cm x 0.4 cm round cyst in the right breast at 1 o' clock anterior depth. This round cyst is anechoic with a well-defined boundary and posterior acousti c enhancement. Color flow imaging demonstrates that there is no vascularity present. IMPRESSION: PROBABLY BENIGN The stable 0.7 cm x 0.3 cm x 0.6 cm oval mass in the right breast at 9 o'clock middle depth likely re presents an intrammammary lymph node and is probably benign. A follow-up ultrasound in 6 months is r ecommended. The dilated duct in the right breast at 10 o'clock middle depth likely represents duct ectasia and is probably benign. A follow-up ultrasound in 6 months is recommended. The lymph node in the right axilla with borderline cortical thickening is probably benign. A follow- up ultrasound in 6 months is recommended. The stable 0.5 cm x 0.5 cm x 0.4 cm round cyst in the right breast at 1 o'clock anterior depth is lorenoz ign. No further followup is warranted for this cyst. A follow-up ultrasound in 6 months is recommended to demonstrate stability of the findings above. Pat ient will be due for mammography of the bilateral breasts at that time. The findings were discussed with the patient at the conclusion of the study by the cardiology technologist ogsandra. This exam was interpreted at Station ID: [id number]. Electronically Signed By: Adam Krishna M.D. ddp/:10/21/2020 14:42:50 Ultrasound BI-RADS: 3 Probably benign BI-RADS CATEGORY: (3) - 3 Ultrasound [id number] 6 month follow-up LATERALITY: (B)
== END 2020-10-20 10:28 | disposition home or self-care (01) ==
LOC: DI 10:27
PROVIDERS: ATTEND Nurse Practitioner Family
DX: N63.15 Unspecified lump in the right breast, overlapping quadrants (principal); N60.01 Solitary cyst of right breast; R92.8 Other abnormal and inconclusive findings on diagnostic imaging of breast

== ENCOUNTER 2021-02-22 10:26 | Outpatient (CLI) | payer OTHER ==
--- NOTE | 2021-02-22 13:02 | MRI Report ---
PROCEDURE: Brain W/O INDICATIONS: Headache TECHNIQUE: Noncontrast axial T1 spin echo, axial T2 fast spin echo, sagittal and axial FLAIR, coronal T2 fast sp in echo, axial gradient echo, axial diffusion and ADC through the brain. COMPARISON: None. FINDINGS: Image quality: Excellent. CSF Spaces: Basal cisterns are patent. No extra-axial fluid collections. Ventricles are normal in size and shape. Brain: No intracranial masses or hemorrhage. Smith/white matter interface is normal. Brainstem appe ars normal. Diffusion-weighted images demonstrate no acute ischemic insult. No chronic ischemic ins ults. Normal intravascular flow voids are present. Skull and face: Calvarium has normal marrow signal. Orbits appear normal. Sinuses: Sinuses and mastoids are clear. IMPRESSION: Normal MRI of the brain. Reviewed by: Akash Sharp MD on 02/22/2021 12:01 PM [facility] Approved by: Akash Sharp MD on 02/22/2021 12:01 PM [facility] Station ID: [id number]
== END 2021-02-22 10:27 | disposition home or self-care (01) ==
LOC: DI 10:26
PROVIDERS: ATTEND Family Medicine
DX: R51.9 Headache, unspecified (principal)

== ENCOUNTER 2021-03-10 12:40 | Outpatient (CLI) | payer OTHER ==
--- NOTE | 2021-03-10 14:26 | MRI Report ---
PROCEDURE: Lumbar Spine W/O INDICATIONS: LOW BACK PAIN TECHNIQUE: Noncontrast sagittal T1 spin echo and T2 fast echo, sagittal STIR, axial T1 and T2 fast spin echo thr ough the lumbar spine. In cases with scoliosis, additional coronal T2 fast spin echo may be performe d. COMPARISON: None. FINDINGS: Image quality: Excellent. Alignment and Curvature: No plain films are available for comparison. Thus, for numbering purposes, 5 lumbar type vertebral bodies will be presumed for the current report. This should be confirmed with plain film correlation prior to any lumbar spinal intervention. There is loss of normal lumbar lordo sis. There is mild grade 1 retrolisthesis of L4 on L5. Bone Marrow: Marrow is of normal overall signal. No acute vertebral body compression fractures. Th ere is mild reactive signal within the endplates adjacent to the L4-L5 and L5-S1 intervertebral discs . Spinal Cord: Conus medullaris terminates at the L1-L2 disc space level. Visualized cord demonstrate s normal signal and size. Paraspinous Soft Tissues: No paravertebral masses. T12-L1: Normal in appearance. L1-L2: Mild disc desiccation and diffuse disc bulge. Mild facet and ligament flavum hypertrophy. M ild canal stenosis. No foraminal stenosis. L2-L3: Mild disc desiccation and diffuse disc bulge. Mild epidural lipomatosis. Mild canal stenosi s. No foraminal stenosis. L3-L4: Mild disc desiccation and diffuse disc bulge. Mild facet and ligament flavum hypertrophy. Mi ld epidural lipomatosis. Mild canal stenosis. Mild bilateral foraminal stenosis. L4-L5: Moderate disc height loss and desiccation. Mild diffuse disc bulge. Mild facet and ligament flavum hypertrophy. Mild epidural lipomatosis. Mild canal stenosis. Moderate bilateral foraminal sten osis. L5-S1: Mild disc desiccation and diffuse disc bulge. Mild bilateral facet hypertrophy. Mild canal s tenosis. Mild bilateral foraminal stenosis. IMPRESSION: 1. Multilevel degenerative disc and facet disease, in addition to epidural lipomatosis and ligamentum flavum hypertrophy. 2. Mild multilevel canal stenoses. 3. Multilevel foraminal stenoses, worst at L4-L5 bilaterally where there are moderate foraminal steno ses. Reviewed by: Shanae Calvillo MD on 03/10/2021 1:24 PM [place] Approved by: Shanae Calvillo MD on 03/10/2021 1:24 PM [place] Station ID: [id number]
== END 2021-03-10 12:41 | disposition home or self-care (01) ==
LOC: DI 12:40
PROVIDERS: ATTEND Family Medicine
DX: M47.816 Spondylosis without myelopathy or radiculopathy, lumbar region (principal); M51.36 Other intervertebral disc degeneration, lumbar region; M48.061 Spinal stenosis, lumbar region without neurogenic claudication; E88.2 Lipomatosis, not elsewhere classified; M47.817 Spondylosis without myelopathy or radiculopathy, lumbosacral region; M51.37 Other intervertebral disc degeneration, lumbosacral region; M48.07 Spinal stenosis, lumbosacral region

== ENCOUNTER 2021-03-28 03:38 | Emergency (ER) | payer OTHER ==
--- NOTE | 2021-03-28 03:55 | ED Physician Documentation ---
PD HPI LOWER EXT INJURY - Stated complaint Stated Complaint: L LEG INJURY - Chief complaint Chief Complaint: Trauma Ext - History obtained from History obtained from: Patient, Family - History of Present Illness PD HPI LOW EXT INJURY LOCATION: Left, Lower leg, Ankle Type of injury: Fall (reportedly she tripped and fell walking up stairs. Pain and deformity to left lower leg/ankle. Unable to bear weight due to pain. carried her to car and came here. She had had some wine celebrating anniversary.) Where injury occurred: Home Timing - onset: How many hours ago (1), Today Timing - details: Abrupt onset, Still present Worsened by: Moving, Palpating Associated symptoms: Swelling. No: Weakness, Numbness Similar symptoms before: Has not had sx before Recently seen: Not recently seen Review of Systems Constitutional: denies: Fever Nose: denies: Rhinorrhea / runny nose, Congestion Throat: denies: Sore throat Cardiac: denies: Chest pain / pressure Respiratory: denies: Cough Musculoskeletal: denies: Neck pain, Back pain Neurologic: denies: Focal weakness, Numbness, Syncope, Headache, Head injury PD PAST MEDICAL HISTORY - Past Medical History Cardiovascular: Hypertension Respiratory: None, Sleep apnea Endocrine/Autoimmune: HyPERthyroidism, Other Musculoskeletal: Fibromyalgia, Chronic back pain - Past Surgical History Past Surgical History: No - Present Medications Home Medications: Ambulatory Orders Medication Instructions Recorded Confirmed Gabapentin [Neurontin] 600 mg PO BID 09/09/19 03/28/21 Ibuprofen [Ibu] 600 mg PO Q6HR PRN 09/09/19 03/28/21 Labetalol [Trandate] 200 mg PO BID 09/09/19 03/28/21 Omeprazole 10 mg PO DAILY 09/09/19 03/28/21 Acetaminophen [Tylenol] 650 mg PO Q4H PRN tablet 09/10/19 03/28/21 Cetirizine [ZyrTEC] 10 mg PO DAILY tablet 09/10/19 03/28/21 DULoxetine [Cymbalta] 60 mg PO DAILY capsule 09/10/19 03/28/21 Lidocaine Patch 5% [Lidoderm Patch] 1 patch TOP DAILY PRN #7 ea 09/10/19 03/28/21 NIFEdipine [Procardia Xl] 60 mg PO DAILY #0 tablet 09/10/19 03/28/21 Vitamin [Trinatal Rx 1] 1 tab PO DAILYWM tablet 09/10/19 03/28/21 Sertraline [Zoloft] 75 mg PO DAILY tablet 09/10/19 03/28/21 tiZANidine [Zanaflex] 4 mg PO Q8H PRN #25 tab 09/10/19 03/28/21 Acetaminophen [Acetaminophen Extra 500 mg PO QID PRN #60 tablet 03/28/21 Strength] Naproxen 500 mg PO BID 10 Days #20 tab 03/28/21 oxyCODONE [Roxicodone] 5 mg PO Q6H PRN #20 tablet 03/28/21 - Allergies Allergies/Adverse Reactions: Allergies Allergy/AdvReac Type Severity Reaction Status Date / Time No Known Drug Allergies Allergy Verified 03/26/15 00:54 - Social History Does the pt smoke?: No Smoking Status: Never smoker Does the pt drink ETOH?: Yes Does the pt have substance abuse?: No - Immunizations Immunizations are current?: Yes PD ED PE NORMAL - Vitals Vital signs reviewed: Yes - General General: Alert and oriented X 3, No acute distress, Well developed/nourished - HEENT HEENT: Atraumatic - Neck Neck: Supple, no meningeal sign, No bony TTP - Cardiac Cardiac: RRR, No murmur - Respiratory Respiratory: Clear bilaterally, Other (no chestwall tenderness) - Abdomen Abdomen: Soft, Non tender - Derm Derm: Normal color, Warm and dry - Extremities Extremities: Other (left lower tib/fib with local swelling and tenderness. The malleoli not tender per se. Achilles firm and intact. Foot and toes not tender. ) - Neuro Neuro: Alert and oriented X 3, No motor deficit, No sensory deficit, Normal speech (somewhat giddy and laughing about it. ), Other Results - Vitals Vitals: Vital Signs - 24 hr 03/28/21 03/28/21 03:40 04:25 Temperature 36.4 C L Heart Rate 103 H 89 Respiratory 18 16 Rate Blood Pressure 132/75 H 111/75 O2 Saturation 99 98 Oxygen O2 Source Room air - Rads (name of study) left tib/fib Radiology: Prelim report reviewed (spiral fracture distal tib/fib with minimal displacement and mild posterior angulation. ), See rad report Procedures - Splint (location) left tib/fib Splint applied by: Physician, Tech Type of splint: Fiberglass, Posterior, Stirrup Other: Patient tolerated well, No complications, Neurovascular intact, Crutches provided PD MEDICAL DECISION MAKING - ED course Complexity details: reviewed results, considered differential, d/w patient Departure - Departure Disposition: 01 Home, Self Care Clinical Impression: Fall from slip, trip, or stumble Qualifiers: Encounter type: initial encounter Qualified Code(s): W01.0XXA - Fall on same level from slipping, tripping and stumbling without subsequent striking against object, initial encounter Tibia/fibula fracture, shaft Qualifiers: Encounter type: initial encounter Fracture type: closed Laterality: left Qualified Code(s): S82.202A - Unspecified fracture of shaft of left tibia, initial encounter for closed fracture; S82.402A - Unspecified fracture of shaft of left fibula, initial encounter for closed fracture Condition: Stable Record reviewed to determine appropriate education?: Yes Instructions: ED Fx Lower Ext Follow-Up: BETTE AN[facility]ELES ARNP [Primary Care Provider] - Prescriptions: Acetaminophen [Acetaminophen Extra Strength] 500 mg PO QID PRN #60 tablet PRN Reason: Pain Naproxen 500 mg PO BID 10 Days #20 tab oxyCODONE [Roxicodone] 5 mg PO Q6H PRN #20 tablet PRN Reason: Pain Comments: Keep the leg rested, elevated with ice to it often to help reduce swelling. This type of fracture sometimes will heal and be treated with stabilizing externally (a cast) or sometimes needs to be stabilized internally (surgery with plate/ screws). Initially these are treated with splinting to hold it in position and to allow the swelling to improve. Follow up with Orthpedist to re-xray and discuss the best treatment options once the swelling is down. Call the Orthopedic office later today for an appt for later this week or early next week. Crutches for non-weight bearing until follow up. This will take about 6 weeks for healing. FOr pain, keeping it splinted and helping the swelling go down are the best for pain. Use anti-inflammatories such as Naproxen twice daily with food for the next 7-10 days. Add Tylenol 500 mg 4 times daily to that as needed. Then you can add Oxycodone pain med to those if needed for worse pain. This is typically needed mainly the first several days. I transmitted the scripts to the [facility] pharmacy in [place]. I am prescribing a short course of narcotic pain medication for you. These are potentially dangerous and addictive medications that should be used carefully. These medications may constipate you. Take an qclm-[id number]-nihlenj stool softener such as docusate twice daily with plenty of water while taking these medications. If you go 24 hours without a bowel movement, take [id number] MiraLAX, per package instructions. Do not drink or drive while taking these medications. If you received narcotic or sedating medications while in the emergency department do not drive for 24 hours. Store this medication in a safe, secure place and out of reach of children. It is a violation of federal law to give or sell this medication to another person or to use in a manner other than prescribed. The ED will not refill narcotic prescriptions, including prescriptions lost or stolen. You can dispose of unwanted medications at the Office Services Assistant's office or at several pharmacies such as [facility].
[2021-03-28] MEDS ORDERED: IBUPROFEN 600 MG TABLET PO STA (04:15)
[2021-03-28] MEDS ORDERED: ACETAMINOPHEN 325 MG TABLET PO STA (04:15)
[2021-03-28] MEDS ORDERED: oxyCODONE/ACET 5/325 Prepack 4 PO STA (04:53)
[2021-03-28 05:47] VITALS: BP 110/68
--- NOTE | 2021-03-28 08:33 | XRAY Report ---
PROCEDURE: Tib/Fib LT INDICATIONS: Fell/injured L lower leg, deformity noted. TECHNIQUE: 2 views of the tibia and fibula were acquired. COMPARISON: None FINDINGS: Bones: Comminuted, mildly displaced and angulated distal shaft fracture of the tibia, with possible e xtension of a fracture line to the tibiotalar joint. This is not definite. Mildly comminuted, displac ed distal fibular shaft fracture. No suspicious bony lesions. Soft tissues: No suspicious soft tissue calcifications or masses. IMPRESSION: Distal tibia and fibula fractures as described above. Findings are concordant with preliminary interpretation provided by [facility]. Reviewed by: Kem Mercado MD on 03/28/2021 8:31 AM PST Approved by: Kem Mercado MD on 03/28/2021 8:31 AM PST Station ID: [id number]
== END 2021-03-28 05:50 | disposition home or self-care (01) ==
LOC: ED 03:38
DX: S82.292A Other fracture of shaft of left tibia, initial encounter for closed fracture (principal); S82.452A Displaced comminuted fracture of shaft of left fibula, initial encounter for closed fracture; W10.9XXA Fall (on) (from) unspecified stairs and steps, initial encounter; I10 Essential (primary) hypertension
CPT/HCPCS: 29505; 73590; 99283; 99284; A9270

== ENCOUNTER 2021-03-28 17:51 | Emergency (ER) | payer OTHER ==
[2021-03-28 18:16] VITALS: BP 135/64
--- NOTE | 2021-03-28 19:11 | ED Physician Documentation ---
PD HPI LOWER EXT INJURY - Stated complaint Stated Complaint: L LEG INJURY SENT BY DR - Chief complaint Chief Complaint: Trauma Ext - History obtained from History obtained from: Patient, Family - History of Present Illness PD HPI LOW EXT INJURY LOCATION: Left, Lower leg Type of injury: Fall Where injury occurred: Home Timing - onset: Last night Timing - duration: Days (1) Timing - details: Abrupt onset, Still present Improved by: Rest, Immobilization, Meds Worsened by: Moving, Palpating Similar symptoms before: Has not had sx before Recently seen: Emergency Dept - Additional information Additional information: 40-year-old female with a fall yesterday has a fracture to her left tib-fib and this was placed into a splint she was instructed to follow-up with orthopedics and she has made an appointment to see Dr. White set up for tomorrow. She was told by the surgeon at the [facility] [place] that this should have surgery within 48 hours and she was instructed to come to the emergency department to see an on- call orthopedic doctor. I have discussed the case with Dr. Monique who is aware of the patient's condition, has reviewed films and has recommended that she have surgery. He recommends that she have surgery sometime within the next week when the swelling is reduced. He did not recommend urgent surgery. The surgeon at the [facility] [place] has recommended urgent surgery. There is a miscommunication. The patient is having inadequate pain relief with a single percocet. Review of Systems Constitutional: denies: Fever Respiratory: denies: Cough GI: denies: Vomiting PD PAST MEDICAL HISTORY - Past Medical History Cardiovascular: Hypertension Respiratory: None, Sleep apnea Endocrine/Autoimmune: HyPERthyroidism, Other Musculoskeletal: Fibromyalgia, Chronic back pain - Past Surgical History Past Surgical History: No - Present Medications Home Medications: Ambulatory Orders Medication Instructions Recorded Confirmed Gabapentin [Neurontin] 600 mg PO BID 09/09/19 03/28/21 Ibuprofen [Ibu] 600 mg PO Q6HR PRN 09/09/19 03/28/21 Labetalol [Trandate] 200 mg PO BID 09/09/19 03/28/21 Omeprazole 10 mg PO DAILY 09/09/19 03/28/21 Acetaminophen [Tylenol] 650 mg PO Q4H PRN tablet 09/10/19 03/28/21 Cetirizine [ZyrTEC] 10 mg PO DAILY tablet 09/10/19 03/28/21 DULoxetine [Cymbalta] 60 mg PO DAILY capsule 09/10/19 03/28/21 Lidocaine Patch 5% [Lidoderm Patch] 1 patch TOP DAILY PRN #7 ea 09/10/19 03/28/21 NIFEdipine [Procardia Xl] 60 mg PO DAILY #0 tablet 09/10/19 03/28/21 Vitamin [Trinatal Rx 1] 1 tab PO DAILYWM tablet 09/10/19 03/28/21 Sertraline [Zoloft] 75 mg PO DAILY tablet 09/10/19 03/28/21 tiZANidine [Zanaflex] 4 mg PO Q8H PRN #25 tab 09/10/19 03/28/21 Acetaminophen [Acetaminophen Extra 500 mg PO QID PRN #60 tablet 03/28/21 Strength] Naproxen 500 mg PO BID 10 Days #20 tab 03/28/21 oxyCODONE [Roxicodone] 5 mg PO Q6H PRN #20 tablet 03/28/21 - Allergies Allergies/Adverse Reactions: Allergies Allergy/AdvReac Type Severity Reaction Status Date / Time No Known Drug Allergies Allergy Verified 03/28/21 18:16 - Social History Does the pt smoke?: No Smoking Status: Never smoker Does the pt drink ETOH?: Yes Does the pt have substance abuse?: No - Immunizations Immunizations are current?: Yes - POLST Patient has POLST: No PD ED PE NORMAL - Vitals Vital signs reviewed: Yes (tachy and hypertensive both mild ) - General General: Alert and oriented X 3, No acute distress, Well developed/nourished, Other (Sitting in a wheel chair with left leg in a splint. Appears comfortable. ) - HEENT HEENT: Atraumatic, PERRL, EOMI - Respiratory Respiratory: No respiratory distress - Extremities Extremities: Other (splinted LLE) - Neuro Neuro: Alert and oriented X 3, wheel adjuster 2-12 intact, Normal speech Eye Opening: Spontaneous Motor: Obeys Commands Verbal: Oriented GCS Score: 15 - Psych Psych: Normal mood, Normal affect Results - Vitals Vitals: Vital Signs - 24 hr 03/28/21 18:11 Temperature 36.9 C Heart Rate 103 H Respiratory 16 Rate Blood Pressure 135/64 H O2 Saturation 100 Oxygen O2 Source Room air PD MEDICAL DECISION MAKING - ED course Complexity details: reviewed old records, reviewed results, considered differential, d/w patient, d/w family ED course: 40-year-old female with a tib-fib fracture last night was asked to come to the emergency department to seek surgery. Emergent surgery is not indicated and I went to the emergency department waiting room and explained this to the patient and her they were thankful and they have already made the appointment to see Dr. Vaca tomorrow. I did ask the patient to take additional pain medication as she has having inadequate pain relief with a single Percocet. She will take 2 at a time. Departure - Departure Disposition: Home, Self Care Clinical Impression: Tibia/fibula fracture, shaft Qualifiers: Encounter type: subsequent encounter Fracture type: closed Laterality: left Fracture healing: with routine healing Qualified Code(s): S82.202D - Unspecified fracture of shaft of left tibia, subsequent encounter for closed fracture with routine healing; S82.402D - Unspecified fracture of shaft of left fibula, subsequent encounter for closed fracture with routine healing Condition: Stable Follow-Up: Harry Moinque MD [Provider Admit Priv/Credential] -
== END 2021-03-28 19:25 | disposition home or self-care (01) ==
LOC: ED 17:51
DX: S82.292A Other fracture of shaft of left tibia, initial encounter for closed fracture (principal); S82.452A Displaced comminuted fracture of shaft of left fibula, initial encounter for closed fracture; W10.9XXA Fall (on) (from) unspecified stairs and steps, initial encounter; I10 Essential (primary) hypertension

== ENCOUNTER 2021-03-31 08:30 | Day surgery (SDC) | payer OTHER ==
[2021-03-31] MEDS ORDERED: CEFAZOLIN SODIUM IN 0.9 % NACL 2 GM/100 ML BAG IV ONE (08:45)
[2021-03-31] MEDS ORDERED: GABAPENTIN 400 MG CAPSULE ONE (08:45)
[2021-03-31] MEDS ORDERED: CELECOXIB 100 MG CAPSULE PO ONE (08:45)
[2021-03-31] MEDS ORDERED: ACETAMINOPHEN 500 MG TABLET PO ONE (08:45)
[2021-03-31 09:31] LABS: HCG UR QUAL NEGATIVE
[2021-03-31] MEDS ORDERED: ACETAMINOPHEN 1,000 MG/100 ML 100 ML IV ONE (09:40)
--- NOTE | 2021-03-31 09:40 | ANESTHESIA ---
Pre-Anesthesia VS, & Labs - Diagnosis L tib/fib fracture - Procedure L tib/fib ORIF Vital Signs: Temp Pulse Resp BP Pulse Ox 36.8 C 79 16 125/67 100 03/31/21 09:23 03/31/21 09:23 03/31/21 09:23 03/31/21 09:23 03/31/21 09:23 Height: 5 ft 4 in Weight (kg): 86.18 kg Body Mass Index: 32.5 BMI Classification: Obese - NPO >8 hours - Is Patient ?: No Home Medications and Allergies Ibuprofen [Ibu] 600 mg PO Q6HR PRN 09/09/19 Omeprazole 10 mg PO DAILY 09/09/19 Allergies/Adverse Reactions: Allergies Allergy/AdvReac Type Severity Reaction Status Date / Time No Known Drug Allergies Allergy Verified 03/28/21 18:16 Anes History & Medical History - Anesthetic History Anesthesia Complications: reports: No previous complications Family history of Anesthesia Complications: Denies Family history of Malignant Hyperthermia: Denies - Medical History Cardiovascular: reports: Hypertension, Murmur Pulmonary: reports: None, Sleep apnea Gastrointestinal: reports: GERD Urinary: reports: None Musculoskeletal: reports: Fibromyalgia, Chronic back pain Endocrine/Autoimmune: reports: HyPERthyroidism Blood Disorders: reports: None Skin: reports: Rosacea, Other Smoking Status: Never smoker - Surgical History General: reports: Colonoscopy, Other Gynecologic: reports: section Exam General: Alert, Oriented x3, Cooperative Dental: WNL Mouth Openin Fingerbreadth Neck Mobility: Normal Mallampati classification: II Thyromental Distance: 4-6 cm Respiratory: Lungs clear Cardiovascular: Regular rate Plan Anesthesia Type: Popliteal Block, Adductor Block Consent for Procedure(s) Verified and Reviewed: Yes Code Status: Attempt Resuscitation ASA classification: 2-Mild systemic disease Is this case an emergency?: No
[2021-03-31] MEDS ORDERED: MIDAZOLAM 2 MG/2 ML VIAL ONE ×2 (09:49→10:10)
[2021-03-31] MEDS ORDERED: LACTATED RINGERS 1,000 ML IV ONE ×2 (09:49→14:36)
[2021-03-31] MEDS ORDERED: fentaNYL 100 MCG/2 ML VIAL ONE ×5 (09:50→14:53)
[2021-03-31] MEDS ORDERED: LIDOCAINE-MPF 2% 5 ML VIAL ONE (09:52)
[2021-03-31] MEDS ORDERED: PROPOFOL 200 MG/20 ML VIAL IVP ONE ×2 (09:52→14:14)
[2021-03-31] MEDS ORDERED: ROPIVACAINE 0.5% PF 20 ML AMPULE ONE (09:53)
[2021-03-31] MEDS ORDERED: oxyCODONE 5 MG TABLET PO PRN (10:18)
[2021-03-31] MEDS ORDERED: KETOROLAC 15 MG/ML VIAL IVP STA (10:18)
[2021-03-31] MEDS ORDERED: DEXAMETHASONE 4 MG/ML VIAL ONE (11:08)
[2021-03-31] MEDS ORDERED: KETOROLAC 30 MG/ML VIAL ONE (11:08)
[2021-03-31] MEDS ORDERED: ONDANSETRON 4 MG/2 ML VIAL ONE (11:08)
[2021-03-31] MEDS ORDERED: HYDROmorphone 1 MG/ML CARPUJECT ONE (12:19)
[2021-03-31] MEDS ORDERED: NALOXONE 0.4 MG/ML VIAL IVP PRN (13:06)
[2021-03-31] MEDS ORDERED: HYDROmorphone 0.5 MG/0.5 ML SYRINGE IVP PRN (13:06)
[2021-03-31] MEDS ORDERED: MORPHINE 2 MG/ML CARPUJECT IVP PRN (13:06)
[2021-03-31] MEDS ORDERED: ATROPINE ABBOJECT 1 MG/10 ML SYRINGE IVP PRN (13:06)
[2021-03-31] MEDS ORDERED: METOCLOPRAMIDE 10 MG/2 ML VIAL IVP PRN (13:06)
[2021-03-31] MEDS ORDERED: ONDANSETRON 4 MG/2 ML VIAL IVP PRN (13:06)
[2021-03-31] MEDS ORDERED: ePHEDrine 50 MG/ML VIAL IVP PRN (13:06)
[2021-03-31] MEDS ORDERED: LACTATED RINGERS 1,000 ML IV SCH (14:00)
--- NOTE | 2021-03-31 14:22 | OPERATIVE REPORT ---
Operative Report - General Procedure Date: 03/31/21 Planned Procedure: Open reduction internal fixation left tibia Pre-Op Diagnosis: Displaced distal tibia and fibular shaft fractures left leg Procedure Performed: Open reduction internal fixation left tibia, locked proximally and distally using the [employer] TriGen metanail: 8.5 mm x 32 mm Post Op Diagnosis: Same as preoperative diagnosis - Procedure Note Primary Surgeon: Harry Monique MD Secondary Surgeon: Blas LECAH Anesthesia Provider: Declan Mason CRNA Anesthesia Technique: General LMA, Regional block Estimated Blood Loss (mL): 100 Indications: This is a 41-year-old woman with a history of fall within the past week, subsequent isolated injury to the lower left leg. She was seen in the emergency room, placed in a short leg splint and seen in follow-up at our office. Her pa in is decreasing to left leg. She has no neurovascular symptoms. Her swelling was not excessive, compartments to left leg were soft. There were no fracture blisters. There is no contused skin. There was tenderness at the distal tibia and fibula, marked pain with any movement of the left leg. Her x-rays showed displaced, comminuted fractures of the distal tibial shaft and fibula. The fracture was just at the junction of the midshaft and distal shaft where the isthmus begins to widen. The fracture was unstable. The ankle mortise appeared intact. An informed consent was obtained, patient agreeing to the surgery to stabilize left leg with internal fixation. Findings: The fracture of the fibula appeared more comminuted on C-arm images. The fractures remained as described with comminution to both distal tibia and fibular fractures which are at the same approximate level of the left leg. The fractures seem to align well with traction longitudinally and direct manipulation so that I did not feel it was necessary to stabilize the fibula. It was felt that stabilization of the tibia would align the fibular fracture. Complications: No orthopedic complications, alleged aspirat On extubation using LMA - Other Other Information/Narrative: The patient was brought to the operating room. She had received regional block in the perioperative holding. A general anesthetic was given. A bolster was placed beneath the left leg to facilitate knee flexion. A hip bolster was inserted to provide some internal rotation of the left leg. The bolster beneath the leg was taped to the table. The left lower extremity was prepped and draped in a sterile manner in the usual fashion. A timeout procedure was performed by the entire operating room team and all were in agreement. A semiextended knee approach was utilized to provide entry to the proximal tibial canal. A lateral patellar incision was made with the knee flexed about 50 degrees using a bump beneath the popliteal fossa. The lateral retinaculum was incised and an extra-articular and extracapsular approach was made between the patellar tendon and the capsule.The entry point was carefully established with a 3.2 mm guidepin. The knee was placed in rotation to allow the lateral edge of the tibia to bisect the proximal fibula. The guidepin was inserted on the lateral edge of the medial tibial spine on the AP view and just below the articular surface on the lateral view. All imaging done was done with our C arm which had a sterile drape. After the starting point I been achieved the guidepin was advanced approximately 6 cm. The 12.5 mm entry reamer was utilized and the fluids were buried.The 3.0 mm ball tip flexible guide kasia and gripper were utilized. The guide pin was inserted down the proximal tibia. The fracture was reduced with traction and direct manipulation to allow passage of the guidepin across the fracture into the distal tibia. The guide pin was well positioned in the distal tibia. Reaming was then begun with a 9 mm reamer. Additional reamers was utilized with the final reamer being 10 cm. She had a relatively small isthmus in the 8.5 mm diameter was felt to be appropriate. The length of the guidepin was measured using a ruler and measured 32 cm. The 8.5 x 32 cm Little [employer] Nephew nail and attached guide was utilized. The nail was gently impacted down the tibial canal just above the fracture. A concentric reduction was achieved to allow nail passage with further impaction across the fracture site into the distal tibia. The fracture was well aligned and the position of the kasia appeared to be very good. The fracture was impacted and aligned well on lateral and AP images. The fibula also aligned well. Proximal locking screws were placed one medial and 1 lateral through the guide using the C arm image intensifier to assist in screw placement for the proximal locking screws. The guide was removed. The proximal end of the kasia was slightly countersunk and was in good position. 3 distal locking screws were inserted using a freehand technique. 2 screws were inserted distally from medial to lateral and the final screw was placed from anterior to posterior through 1 cm incisions. There appeared to be excellent fixation and alignment of the fracture and the locking screws appear to be in good position. Care was taken to avoid any tendinous structures to the anterior distal locking screw. As well as the neurovascular bundle. The wounds were thoroughly irrigated. The lateral patellar retinaculum was closed with 2 oh strata fix. The skin was closed with 3-0 nylon. The proximal and distal locking screw incisions were closed with 3-0 nylon. Xeroform and dry sterile dressing was applied, and a well-padded short leg fiberglass splint was applied. At the termination of the procedure, apparently the patient had an emesis and possible aspiration. She received 2 g of Ancef prior to the incision and tolerated the procedure well a physician assistant research scientist was utilized to help in preparation, positioning, reduction, insertion of sternal fixation and protection of vital structures.
[2021-03-31] MEDS ORDERED: FAMOTIDINE 20 MG/2 ML VIAL IVP ONE (14:37)
[2021-03-31] MEDS: fentaNYL 100 MCG/2 ML VIAL IVP PRN ×2 (14:46→14:59)
--- NOTE | 2021-03-31 14:49 | XRAY Report ---
PROCEDURE: Chest 1 View X-Ray INDICATIONS: Postop aspiration, in PACU TECHNIQUE: One view of the chest was acquired. COMPARISON: None. FINDINGS: Surgical changes and devices: None. Lungs and pleura: No pleural effusions or pneumothorax. Lungs appear clear. Mediastinum: Mediastinal contours appear normal. Heart size is normal. Bones and chest wall: No suspicious bony lesions. Overlying soft tissues appear unremarkable. IMPRESSION: Lungs appear clear. When clinically feasible consider two-view chest radiograph. Reviewed by: Carlos Cruz MD on 03/31/2021 2:48 PM PST Approved by: Carlos Cruz MD on 03/31/2021 2:48 PM PST Station ID: [id number]
--- NOTE | 2021-03-31 15:14 | CONSULTATION NOTE ---
Consultation Report: When d/c'ing LMA at end of the case, coffee ground emesis noted at end of LMA. O2 sat 100%, BBS CTA throughout, Vt >1000. No clinical signs of aspiration. Pepcid 20mg IV given prophylactically. PCXR obtained in PACU. No signs of aspiration noted. Pt A&O in PACU. Pt notified of S&S of aspiration and instructed to return to ED if needed. Pt denies any respiratory symptoms. O2 sat remains 100%, BBS remain CTA. Pt admitted that she did not take her daily dose of omeprazole this AM. OK to d/c home from anesthesia standpoint. Discussed with Dr Miller and SEGUN Worrell who will continue to provide pt care as they deem appropriate.
[2021-03-31] MEDS ORDERED: HYDROmorphone 0.5 MG/0.5 ML SYRINGE ONE (15:18)
--- NOTE | 2021-03-31 15:44 | ANESTHESIA POST OP EVALUATION ---
Anesthesia Post Eval - Post Anesthesia Eval Vitals: Last Vital Signs Temp 36.7 C 03/31/21 15:30 Pulse 100 03/31/21 15:30 Resp 12 03/31/21 15:30 BP 165/90 H 03/31/21 15:30 Pulse Ox 94 03/31/21 15:30 CV Function Including HR & BP: Stable Pain Control: Satisfactory Nausea & Vomiting: Negative Mental Status: Baseline Respiratory Status: Airway Patent Hydration Status: Satisfactory Anesthesia Complications: None
[2021-03-31] MEDS ORDERED: oxyCODONE 5 MG TABLET ONE (16:03)
[2021-03-31 16:59] VITALS: BP 150/80
--- NOTE | 2021-03-31 17:21 | XRAY Report ---
PROCEDURE: OR C-Arm Procedure INDICATIONS: left tib/fib orif, OR 3 FINDINGS: Intraoperative fluoroscopic view of the tibial intramedullary nail placement. IMPRESSION: Operative fluoroscopic views as above. Reviewed by: Niko Arenas on 03/31/2021 5:20 PM [facility] Approved by: Niko Arenas on 03/31/2021 5:20 PM [facility] Station ID: [id number]
== END 2021-03-31 08:31 | disposition home or self-care (01) ==
LOC: SDS 08:30
PROVIDERS: ATTEND Orthopaedic Surgery
DX: S82.302A Unspecified fracture of lower end of left tibia, initial encounter for closed fracture (principal); S82.832A Other fracture of upper and lower end of left fibula, initial encounter for closed fracture; W10.9XXA Fall (on) (from) unspecified stairs and steps, initial encounter; Y92.008 Other place in unspecified non-institutional (private) residence as the place of occurrence of the external cause; F17.210 Nicotine dependence, cigarettes, uncomplicated; I10 Essential (primary) hypertension; E66.9 Obesity, unspecified; Z32.02 Encounter for pregnancy test, result negative; Z68.32 Body mass index [BMI] 32.0-32.9, adult; Z79.899 Other long term (current) drug therapy
CPT/HCPCS: 27758; 71045; 81025; 87635; A9270; J0131; J0690; J1170; J7120

== ENCOUNTER 2021-07-18 12:49 | Outpatient (CLI) | payer OTHER ==
[2021-07-18 13:22] LABS: BASOPHILS # (AUTO) 0.1 10^3/uL (0.0-0.1); BASOPHILS % (AUTO) 0.9 %; EOSINOPHILS # (AUTO) 0.5 10^3/uL (0.0-0.7); EOSINOPHILS % (AUTO) 4.5 %; HCT - HEMATOCRIT 36.8 % (37.0-47.0); HGB - HEMOGLOBIN 11.9 g/dL (12.0-16.0); LYMPHOCYTES # (AUTO) 2.6 10^3/uL (1.5-3.5); LYMPHOCYTES % (AUTO) 26.5 %; MEAN CORPUSCULAR HEMOGLOBIN 27.2 pg (27.0-31.0); MEAN CORPUSCULAR HGB CONC 32.3 g/dL (32.0-36.0); MEAN CORPUSCULAR VOLUME 84.2 fL (81.0-99.0); MEAN PLATELET VOLUME 9.1 fL (7.9-10.8); MONOCYTES # (AUTO) 0.8 10^3/uL (0.0-1.0); MONOCYTES % (AUTO) 7.5 %; NEUTROPHILS % (AUTO) 60.3 %; PLT - PLATELET COUNT 428 10^3/uL (130-450); RED BLOOD COUNT 4.37 10^6/uL (4.20-5.40); RED CELL DISTRIBUTION WIDTH 16.6 % (12.0-15.0)
[2021-07-18 13:45] LABS: HCG UR QUAL NEGATIVE
== END 2021-07-18 12:50 | disposition home or self-care (01) ==
LOC: LAB 12:49
PROVIDERS: ATTEND Obstetrics & Gynecology
DX: Z01.812 Encounter for preprocedural laboratory examination (principal); N81.2 Incomplete uterovaginal prolapse; N81.6 Rectocele; Z20.822 Contact with and (suspected) exposure to COVID-19
CPT/HCPCS: 36415; 81025; 85025; 86850; 86900; 86901; 86920

== ENCOUNTER 2021-07-19 09:37 | Day surgery (SDC) | payer OTHER ==
--- NOTE | 2021-07-19 07:15 | HISTORY & PHYSICAL EXAMINATION ---
HPI - History of Present Illness HPI Comment/Other: HPI: Patient presents today for pre-op visit. Surgery scheuled 07/19/21 for Hysterectomy with repair. ...................................................................Ana Marroquin Chef De Froid July 13, 2021 2:11 PM Patient is a 41 yo here for preop assessment of hysterectomy and AP reparir for prolapse. SHe has had 3 vaginal deliveries and one emergency with BTL in most recent delivery. She was seen by a provider in [place] that told her she had Stage 3/4 prolapse. Pelvis feels very congested and she has a lot of pelvic pain. Leaks urine intermittetly. Leaks urine with intercourse. Feels a bubble coming out of the vagina. Has to splint to urinate. Wants definitive management with surgery. Has nothad pelvic floor PT. Allergies: No Known Allergies Medications: hydrocodone-acetaminophen 10-325 mg tablet (hydrocodone-acetaminophen) Take 1 tablet by mouth three times a day as needed for pain oxycodone 10 mg tablet (oxycodone) 1 tablet by mouth every six hours omeprazole 20 mg capsule,delayed release(DR/EC) (omeprazole) 1 capsule by mouth once a day * SERTRALINE HCL TABLET 75 mg by mouth once a day duloxetine 60 mg capsule,delayed release(DR/EC) (duloxetine) 1 capsule by mouth once a day olopatadine 0.1% drops (olopatadine) 1 drop into both eyes twice a day Surfak 240 mg capsule (docusate calcium) 1 capsule by mouth twice a day Metrogel 1% gel (metronidazole) Apply to skin once a day cetirizine 10 mg tablet (cetirizine) 1 tablet by mouth once a day losartan 50 mg tablet (losartan) 1 tablet by mouth once a day Concerta 54 mg tablet extended release 24hr (methylphenidate hcl) 1 tablet by mouth once a day terbinafine HCl 250 mg tablet (terbinafine hcl) 1 tablet by mouth once a day diclofenac sodium 75 mg tablet,delayed release (DR/EC) (diclofenac sodium) 1 tablet by mouth twice a day Problems: Screening for malignant neoplasm of the cervix (ICD-V76.2) (OFK54-Q67.4) Rectocele (ICD-618.04) (YGK56-L47.6) Cystocele with incomplete uterine prolapse (ICD-618.2) (FWX32-R23.2) Displaced comminuted fracture of shaft of left tibia, initial encounter for closed fracture (YNA01-U08.252A) Anemia (ICD-285.9) (QHN42-O57.9) Insomnia (ICD-780.52) (WPC04-S26.00) Graves' disease (ICD-242.00) (SCV68-H98.00) Gastric reflux (ICD-530.81) (STJ61-D79.9) Fibromyalgia (ICD-729.1) (BMS22-N64.7) Anxiety depression (ICD-300.4) (XFH01-Z36.8) Chronic hypertension complicating AND/OR reason for care during (ICD- 642.00) (GQM68-R96.9) Vital Signs: Patient Profile: 41 Years Old Female Height: 64 inches Weight: 189.2 pounds BMI: 32.59 Temp: 97.6 degrees F temporal BP sittin / 88 Cuff size: regular Vitals Entered By: Ana Marroquin Chef De Froid (July 13, 2021 2:11 PM) Meds Reviewed: Done Allergies Reviewed: Done Past Medical History: Graves disease (dx 2014, treated with MMI x1 year and has not needed any thyroid replacement/treatment) FM CHTN GERD Rosacia. 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 Physical Constitutional: GEN: NAD HEAD: NCAT EYES: No scleral icterus or conjunctival injection CV: RRR RESP: CTAB, normal effort ABD: S&NT/ND PSYCH: appropriate affect NEURO: alert and oriented, normal gait and coordination EXT: WWP Vulva: normal appearance, no lesions or masses. Urethra: small urine loss with straining Bladder: poor support, descends with Valsalva. Stage III cystocele Vagina: normal, rugated, physiologic discharge. Presence of Stage II-III cystocele and Stage II-III rectocele Cervix: normal, no motion tenderness, no lesions. Minimal descent with valsalva Uterus: mobile, non-tender. Adnexa: normal, nontender. Pap collected Impression & Recommendations: Problem # 1: Preoperative exam Preop examination for total vaginal hysterectomy and bilateral salpingectomy We discussed risks, benefits, alternatives. Reviewed all surgical procedures carry risks of bleeding, infection, and damage nearby tissue and organs. Discussed the risk of infection with blood transfusion is relatively low. Risk of HIV is 1 in 2 million nationwide, risk of hepatitis is 1/million nationwide. Reviewed for possibility of transfusion reaction and possible management with medications. She is provided consent for blood transfusion. Reviewed that anatomically speaking that the vagina is full of bacteria. We cannot fully sterilized the vagina, nor would we want to. When the incision is made to release the uterus from the abdomen, a pathway for bacteria into the otherwise sterile abdominal cavity is created. For this reason we will give her IV antibiotics. She denies any allergies to antibiotics. We discussed the anatomical proximity of other organs near the uterus including but not limited to the bladder, ureters, and bowel. As surgeons, we used a number of surgical to techniques to avoid damaging any of these other organs. We reviewed, that despite her best efforts, sometimes injury occurs to these o rgans. We discussed that this may cause complicated post operative course. We also discussed the possibility of converting to an open or laparoscopic procedure. We reviewed the high risk of failure with prolapse surgery m which can be as high as 33% and is more likely in the setting of elevated BMI. We also reviewed that anterior repair may reveal an occult urinary incontinence that would require remedy with a ling procedure. We do not perform sling procedures at this facility. She states she is aware of the risks, and due to time contraints, she wishes to proceed despite possibility of UI and potential failure of the procedure. We reviewed post op restrictions including no lifting of 10# or more for the 4-6 weeks post procedure. She provided consent to all of the above. Written informed consent was obtained. We will proceed to surgery with a scheduled operating room date. 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/OWNER: positive: section Social & Family Hx - Social History Does the pt smoke?: No Smoking Status: Never smoker Does the pt drink ETOH?: Yes Does the pt have substance abuse?: No - POLST Patient has POLST: No Meds/Allgy - Home Medications Home Medications: Ambulatory Orders Medication Instructions Recorded Confirmed Omeprazole 10 mg PO DAILY 09/09/19 07/14/21 Cetirizine [ZyrTEC] 10 mg PO DAILY tablet 09/10/19 07/14/21 DULoxetine [Cymbalta] 60 mg PO DAILY capsule 09/10/19 07/14/21 Sertraline [Zoloft] 75 mg PO DAILY tablet 09/10/19 07/14/21 Diclofenac Sodium 75 mg PO BID 07/14/21 07/14/21 Gabapentin [Neurontin] 600 mg PO BID 07/14/21 07/14/21 Losartan [Cozaar] 50 mg PO DAILY 07/14/21 07/14/21 Methylphenidate HCl [Concerta] 54 mg PO DAILY 07/14/21 07/14/21 - Allergies Allergies/Adverse Reactions: Allergies Allergy/AdvReac Type Severity Reaction Status Date / Time No Known Drug Allergies Allergy Verified 07/19/21 07:09
[~2021-07-19 09:37] MED LIST: ACETAMINOPHEN 500 MG TABLET PO ONE; BUPIVACAINE 0.25% PF 10 ML VIAL ONE; CEFAZOLIN SODIUM IN 0.9 % NACL 2 GM/50 ML BAG IV ONE; CELECOXIB 100 MG CAPSULE PO ONE; ESTROGENS, CONJUGATED CREAM 30 GM TUBE ONE; GABAPENTIN 400 MG CAPSULE ONE; METHYLENE BLUE 0.5% 50 MG/10 ML AMPULE ONE; PHENAZOPYRIDINE 100 MG TABLET PO ONE; VASOPRESSIN 20 UNIT/ML VIAL ONE
[2021-07-19] MEDS ORDERED: LACTATED RINGERS 1,000 ML IV ONE ×2 (09:51→18:47)
--- NOTE | 2021-07-19 11:34 | ANESTHESIA ---
Pre-Anesthesia VS, & Labs - Diagnosis cystocele w/uterine prolapse, rectocele - Procedure LAVH, ant/post repair, cystoscopy Vital Signs: Temp Pulse Resp BP Pulse Ox 36.9 C 69 16 125/63 97 07/19/21 10:00 07/19/21 10:00 07/19/21 10:00 07/19/21 10:00 07/19/21 10:00 Height: 5 ft 3 in Weight (kg): 85.1 kg Body Mass Index: 33.2 BMI Classification: Obese - NPO >8 hours Last Fluid Intake: ERAS meds sips H20 - Is Patient ?: No - Lab Results Lab results reviewed: Yes Home Medications and Allergies Home Medications: Ambulatory Orders Diclofenac Sodium 75 mg PO BID 07/14/21 Gabapentin [Neurontin] 600 mg PO BID 07/14/21 Losartan [Cozaar] 50 mg PO DAILY 07/14/21 Methylphenidate HCl [Concerta] 54 mg PO DAILY 07/14/21 Omeprazole 10 mg PO DAILY 09/09/19 Diclofenac Sodium 75 mg PO BID 07/14/21 Gabapentin [Neurontin] 600 mg PO BID 07/14/21 Losartan [Cozaar] 50 mg PO DAILY 07/14/21 Methylphenidate HCl [Concerta] 54 mg PO DAILY 07/14/21 Allergies/Adverse Reactions: Allergies Allergy/AdvReac Type Severity Reaction Status Date / Time No Known Drug Allergies Allergy Verified 07/19/21 07:09 Anes History & Medical History - Anesthetic History Anesthesia Complications: reports: No previous complications Family history of Anesthesia Complications: Denies Family history of Malignant Hyperthermia: Denies - Medical History Cardiovascular: reports: Hypertension, Murmur Pulmonary: reports: None, Sleep apnea Gastrointestinal: reports: GERD, Other Urinary: reports: None, Other Musculoskeletal: reports: Fibromyalgia, Chronic back pain Endocrine/Autoimmune: reports: HyPERthyroidism Blood Disorders: reports: None Skin: reports: Rosacea, Other Smoking Status: Never smoker - Surgical History General: reports: Colonoscopy, Other Gynecologic: reports: section Orthopedic: reports: Other (ORIF Tibia) Exam General: Alert, Oriented x3, Cooperative Dental: WNL Mouth Openin Fingerbreadth Neck Mobility: Normal Mallampati classification: III Thyromental Distance: 4-6 cm Respiratory: Lungs clear, Normal breath sounds, No respiratory distress Cardiovascular: Regular rate Neurological: Normal speech Mental/Cognitive Status: Alert/Oriented X3, Normal for patient Cognitive Status: Within normal limits Plan Anesthesia Type: General, Transverse Abdominis Plane (TAP) Block (with open incision) Regional Block: Per Surgeon's request for Post Op pain control Consent for Procedure(s) Verified and Reviewed: Yes Code Status: Attempt Resuscitation ASA classification: 2-Mild systemic disease Is this case an emergency?: No
[2021-07-19] MEDS ORDERED: ATROPINE ABBOJECT 1 MG/10 ML SYRINGE IVP PRN (11:35)
[2021-07-19] MEDS ORDERED: ePHEDrine 50 MG/ML VIAL IVP PRN (11:35)
[2021-07-19] MEDS ORDERED: HYDROmorphone 0.5 MG/0.5 ML SYRINGE IVP PRN (11:35)
[2021-07-19] MEDS ORDERED: fentaNYL 100 MCG/2 ML VIAL IVP PRN (11:35)
[2021-07-19] MEDS ORDERED: MORPHINE 2 MG/ML CARPUJECT IVP PRN (11:35)
[2021-07-19] MEDS ORDERED: METOCLOPRAMIDE 10 MG/2 ML VIAL IVP PRN (11:35)
[2021-07-19] MEDS ORDERED: ONDANSETRON 4 MG/2 ML VIAL IVP PRN (11:35)
[2021-07-19] MEDS ORDERED: NALOXONE 0.4 MG/ML VIAL IVP PRN (11:35)
[2021-07-19] MEDS ORDERED: MIDAZOLAM 2 MG/2 ML VIAL ONE (11:51)
[2021-07-19] MEDS ORDERED: fentaNYL 100 MCG/2 ML VIAL ONE ×2 (11:51→17:51)
[2021-07-19] MEDS ORDERED: ROCURONIUM 50 MG/5 ML VIAL ONE ×3 (11:51→17:03)
[2021-07-19] MEDS ORDERED: PROPOFOL 200 MG/20 ML VIAL IVP ONE (11:51)
[2021-07-19] MEDS ORDERED: LIDOCAINE-MPF 2% 5 ML VIAL ONE (11:51)
[2021-07-19] MEDS ORDERED: LACTATED RINGERS 1,000 ML IV SCH (12:00)
[2021-07-19] MEDS ORDERED: KETAMINE 500 MG/10 ML VIAL ONE (12:39)
[2021-07-19] MEDS ORDERED: SODIUM CHLORIDE 0.9% 10 ML VIAL IVP ONE (12:40)
[2021-07-19] MEDS ORDERED: METHYLENE BLUE 0.5% 50 MG/10 ML AMPULE IR ONE (13:40)
[2021-07-19] MEDS ORDERED: ESTROGENS, CONJUGATED CREAM 30 GM TUBE VG ONE (13:40)
[2021-07-19] MEDS ORDERED: VASOPRESSIN 20 UNIT/ML VIAL IVP ONE (13:41)
[2021-07-19] MEDS ORDERED: BUPIVACAINE 0.25% PF 10 ML VIAL SUBQ ONE (13:44)
[2021-07-19] MEDS ORDERED: ONDANSETRON 4 MG/2 ML VIAL ONE (14:33)
[2021-07-19] MEDS ORDERED: GLYCOPYRROLATE 1 MG/5 ML VIAL ONE (16:41)
[2021-07-19] MEDS ORDERED: NEOSTIGMINE 1 MG/1 ML 10 ML MDV ONE (16:41)
[2021-07-19] MEDS ORDERED: ceFAZolin 1 GM VIAL ONE (16:56)
[2021-07-19] MEDS ORDERED: DEXAMETHASONE 4 MG/ML VIAL ONE (18:36)
[2021-07-19] MEDS ORDERED: LIDOCAINE 2% URO-JET 5 ML SYRINGE UR ONE (18:41)
[2021-07-19] MEDS ORDERED: oxyCODONE 5 MG TABLET PO PRN (19:05)
[2021-07-19] MEDS ORDERED: SIMETHICONE CHEW 80 MG TABLET PO PRN (19:05)
[2021-07-19] MEDS ORDERED: SCOPOLAMINE PATCH TOP PRN (19:05)
[2021-07-19] MEDS ORDERED: ONDANSETRON ODT 4 MG TABLET TL PRN (19:05)
[2021-07-19] MEDS ORDERED: HYDROmorphone 1 MG/ML CARPUJECT IVP PRN (19:05)
--- NOTE | 2021-07-19 19:17 | ANESTHESIA POST OP EVALUATION ---
Anesthesia Post Eval - Post Anesthesia Eval Vitals: Last Vital Signs Temp 36.4 C L 07/19/21 19:07 Pulse 89 07/19/21 19:07 Resp 17 07/19/21 19:07 BP 144/72 H 07/19/21 19:07 Pulse Ox 96 07/19/21 19:07 CV Function Including HR & BP: Stable Pain Control: Satisfactory (Dilaudid IV given prior to floor transport. (crotch pain)) Mental Status: Baseline Respiratory Status: Airway Patent Hydration Status: Satisfactory Anesthesia Complications: None
--- NOTE | 2021-07-19 19:19 | OPERATIVE REPORT ---
Operative Report - General Procedure Date: 07/19/21 Planned Procedure: Laparoscopic assisted vaginal hysterectomy and anterior and posterior repair and cystoscopy Pre-Op Diagnosis: cystocele/rectocele with incomplete uterine prolapse Procedure Performed: Laparoscopic assisted vaginal hysterectomy with anterior and posterior repair and cystoscopy Post Op Diagnosis: cystocele/rectocele with incomplete uterine prolapse - Procedure Note Primary Surgeon: Frances Blanco MD Secondary Surgeon: Jay Jay Thompson MD Anesthesia Provider: Declan Mason CRNA Anesthesia Technique: General ET tube Pathology: uterus (no fallopian tubes) IV Fluids (mL): 2,000 Estimated Blood Loss (mL): 200 Urine Output (mL): 300 Indications: Patient is a 41 yo here for preop assessment of hysterectomy and AP reparir for prolapse. She has had 3 vaginal deliveries and one emergency with BTL in most recent delivery. Previously diagnosed with Stage 3/4 prolapse. Pelvis feels very congested and she has a lot of pelvic pain. Leaks urine intermittently. Leaks urine with intercourse. Feels a bubble coming out of the vagina. Has to splint to urinate. Wants definitive management with surgery. Findings: Stage III cystocele and Stage III rectocele. Normal but boggy appearing uterus and cervix with fallopian tubes surgically absent. Normal survey of the abdomen and pelvis with normal liver edge. Post procedure cystoscopy showed bilateral ureteral jets with survey of the bladder confirming no trauma/injury. Post procedural rectal exam showed rectal vault to be absent of suture. Complications: None - Other Other Information/Narrative: Consent was again confirmed. The patient was brought to the OR and underweight general anesthesia. Risks benefits and alternatives of the procedure were reviewed. Consent was again confirmed. Patient was brought to the operating room and underwent general anesthesia. She was placed in dorsal lithotomy position with legs resting in yellowfin stirrups. SCDs were in place and activated. Cefazolin 2 g IV was administered prior to start of procedure. She was prepped and draped in the usual sterile fashion. Surgical timeout was performed. Bimanual exam was performed. HYSTERECTOMY Sterile speculum was placed and Vcare uterine manipulator was placed, confirming that the inner cup was flush with the vaginal fornices. The base of the umbilicus was anesthetized with intradermal injection of 0.25% Marcaine. A 5 mm skin incision was made with a scalpel. A 5 mm blunt trocar was inserted under direct visualization using Visiport. Once the port was confirmed to be placed intraperitoneally, the abdomen was insufflated to 15 mmHg with CO2 gas Exploration of the abdomen and pelvis was confirmed that no injury was sustained with placement of the trocar. Two additional 5 mm ports were placed in the right and left lower quadrants, taking care to avoid the epigastric arteries, while under direct visualization via laparoscopic guidance. The abdomen was explored with the laparoscope, with findings as noted. The Fallopian tubes were surgically absent bilaterally. The left round ligament was placed on tension and then sealed and ligated with the laparoscopic Ligasure device. The uterine ovarian ligament was transected using the LigaSure bipolar device. The broad ligament was divided and a bladder flap was created by incising the peritoneum on the vesicouterine fold. Tissues overlying the colp otomy ring was thus exposed. Once the colpotomy ring was skeletonized and in position, the uterine arteries were sealed using the bipolar forceps at the level of the colpotomy ring. This was repeated on the right aspect of the uterus in the same manner. Colpotomy was performed using the harmonic scalpel, resulting in separation of the uterus and attached tubes. The right tube had been transected and removed separately through a lateral port to improve visualization. The uterus was then delivered through the vagina. ANTERIOR AND POSTERIOR REPAIR Aliis clamps were used to grasp the hymenal ring bilaterally. Dilute vasopressin solution was infiltrated under the posterior vaginal mucosa midline and into the perineal body. A transverse incision at the hymenal ring, forming the base of and inverted triangular incision in the perineum with the apex above the anus, exposing the aponeurosis of the bulbocavernosis muscles. Metzenbaum scissors is inserted under the posterior vaginal mucosa, dissecting the posterior mucosa off the rectovaginal fascia. The posterior vaginal wall was then opened vertically and midline up to the apex of the rectocele. The cut edges were held and splayed laterally with a series of Allis clamps. The open vaginal mucosa was then dissected laterally with a combination of sharp and blunt dissection, exposing the perirectal fascia. The perirectal fascia was then plicated with interrupted #2-0 Vicryl sutures to draw the lateral folds together and tuck the rectocele back into a linear plane. The excess vaginal mucosa was trimmed. The posterior vaginal wall was closed with a running locked 2-0 Vicryl to the hymenal tags. The perineal body was reinforced with a crown suture using running unlocked 2-0 Vicryl and the perineal skin was closed with running subcuticular #2-0 Vicryl. Good hemostasis was noted. Allis clamps were then placed at the fornices of the vaginal cuff. Additional dilute vasopressin was injected under the vaginal mucosa of the anterior vaginal wall to about 1 cm below the urethral meatus. The mucosa was undermined with Metzenbaum scissors. In the space, an incision was made from the anterior aspect of the vaginal cuff, and continued until the vagina is opened to within 1 cm of the urethral meatus. The edges of the mucosa were grasped bilaterally with wide Allis clamps and held in the lateral position. The pubovesical cervical fascia was from the vaginal mucosa in a combination of sharp and blunt dissection. A series of #2-0 Vicryl interrupted sutures were then placed sequentially along the lateral folds of the vesicovaginal space, plicating the pubovesical fascia, together to tuck the bladder back while simultaneously bringing the lateral vaginal tissues together. The excess vaginal mucosa was the n trimmed. The vagina was then closed with a running locked #2 Vicryl suture. The uterosacral ligaments were then fixed to the anterior and posterior vaginal cuff margins to aid in vaginal support. The vaginal cuff was then closed with interrupted figure of 8 sutures using 0-Vicryl. Hemostasis was excellent. The vaginal vault was cleared of debris. Rectal exam was performed and the rectal vault was absent of penetrating suture. Patient received a second dose of cefazolin 2g IV. We again returned to the abdominal surgical field after removing outer gloves. The abdomen was again insufflated. The vaginal cuff was visualized internally and noted to have good hemostasis. Cuff closure was airtight. The abdomen was partially desufflated. Pedicles were observed under decreased pressure and good hemostasis was again confirmed. All instruments were removed from the abdomen. Skin was closed with interrupted subcuticular stitches using 4-0 Monocryl. Dermabond was applied over the suture sites. CYSTOSCOPY A Xiao catheter was then unclamped. The bladder was drained and the Xiao was removed. The cystoscope was inserted and the bladder was distended with normal saline. The survey of all of the bladder surfaces was completed and were noted to be absent of suture or trauma. Ureteral jets were observed directly bilaterally. Bladder was drained and cystoscope was removed. Xiao catheter was replaced. All instruments were removed from the vagina and good hemostasis was noted. Vaginal packing soaked with estrogen cream was placed in the vaginal vault. The final sponge, needle, and instrument counts were correct at completion of the procedure patient was awakened taken to the postanesthesia care unit in stable condition. Dr. Thompson assisted with retraction, assistance with suturing, cystoscopy, and sharing of surgical insight.
[2021-07-19] MEDS ORDERED: HYDROmorphone 0.5 MG/0.5 ML SYRINGE ONE (19:23)
[2021-07-19] MEDS: ACETAMINOPHEN 500 MG TABLET PO SCH (20:05)
[2021-07-19] MEDS: KETOROLAC 30 MG/ML VIAL IVP SCH (20:06)
[2021-07-19] MEDS: LACTATED RINGERS 1,000 ML IV SCH (20:06)
[2021-07-19] MEDS: DOCUSATE SODIUM 100 MG CAPSULE PO SCH (21:10)
[2021-07-19] MEDS: GABAPENTIN 300 MG CAPSULE PO SCH (21:10)
[2021-07-20] MEDS: LACTATED RINGERS 1,000 ML IV SCH (00:08)
[2021-07-20] MEDS: KETOROLAC 30 MG/ML VIAL IVP SCH ×2 (02:00→08:39)
[2021-07-20] MEDS: traMADol 50 MG TABLET PO PRN ×3 (02:01→12:38)
[2021-07-20] MEDS: ACETAMINOPHEN 500 MG TABLET PO SCH ×2 (04:11→12:38)
[2021-07-20] MEDS: GABAPENTIN 300 MG CAPSULE PO SCH (05:05)
[2021-07-20 05:37] LABS: BASOPHILS # (AUTO) 0.1 10^3/uL (0.0-0.1); BASOPHILS % (AUTO) 0.5 %; EOSINOPHILS % (AUTO) 0.1 %; HCT - HEMATOCRIT 29.3 % (37.0-47.0); HGB - HEMOGLOBIN 9.2 g/dL (12.0-16.0); LYMPHOCYTES % (AUTO) 15.3 %; MEAN CORPUSCULAR HEMOGLOBIN 27.2 pg (27.0-31.0); MEAN CORPUSCULAR HGB CONC 31.4 g/dL (32.0-36.0); MEAN CORPUSCULAR VOLUME 86.7 fL (81.0-99.0); MEAN PLATELET VOLUME 9.6 fL (7.9-10.8); MONOCYTES # (AUTO) 0.7 10^3/uL (0.0-1.0); MONOCYTES % (AUTO) 5.1 %; NEUTROPHILS # (AUTO) 10.3 10^3/uL (1.5-6.6); NEUTROPHILS % (AUTO) 78.6 %; PLT - PLATELET COUNT 367 10^3/uL (130-450); RED BLOOD COUNT 3.38 10^6/uL (4.20-5.40); RED CELL DISTRIBUTION WIDTH 16.8 % (12.0-15.0); WHITE BLOOD COUNT 13.1 x10^3/uL (4.8-10.8)
[2021-07-20] MEDS: DOCUSATE SODIUM 100 MG CAPSULE PO SCH ×2 (08:41→08:46)
[2021-07-20] MEDS ORDERED: DULoxetine 20 MG CAPSULE PO SCH (09:00)
[2021-07-20] MEDS ORDERED: LOSARTAN 50 MG TABLET PO SCH (09:00)
[2021-07-20] MEDS ORDERED: DULoxetine 30 MG CAPSULE PO SCH ×2 (09:00)
[2021-07-20] MEDS ORDERED: ENOXAPARIN 40 MG/0.4 ML SYRINGE SUBQ SCH (09:00)
[2021-07-20] MEDS ORDERED: FAMOTIDINE 20 MG TABLET PO SCH (09:00)
[2021-07-20] MEDS ORDERED: SERTRALINE 50 MG TABLET PO SCH (09:00)
[2021-07-20 12:35] VITALS: BP 124/59
--- NOTE | 2021-07-22 13:47 | PROVIDER PROGRESS NOTE ---
Subjective - Prog Note Date Prog Note Date: 07/20/21 Prog Note Time: 11:00 - Subjective Subjective: Patient is doing well with pain well controlled. Has not yet had vaginal packing or serrano catheter removed. Tolerating po. No bleeding of note. Has not amb ulated. Objective - Vital Signs/Intake & Output Reviewed Vital Signs: Yes Vital Signs: 99.1 94 123/57 19 90 Intake & Output: Intake & Output 07/19/21 07/20/21 07/21/21 07/22/21 23:59 23:59 23:59 23:59 Intake Total 533.541 5025.667 Output Total 1175 735 Balance -850.016 7063.667 - Objective General Appearance: positive: No acute distress Neck: positive: Nml inspection Respiratory: positive: No respiratory distress, Breath sounds nml Cardiovascular: positive: Regular rate & rhythm Peripheral Pulses: 2+ Dorsalis pedis (R), 2+ Dorsalis pedis (L) Abdomen: positive: Non-tender, No distention (S&NT/ND. Port sites CDI with Dermabond in place) Skin: positive: Color nml Neurologic/Psychiatric: positive: Oriented x3 - Lab Results Fish Bones: 07/20/21 05:23 - Other Results/Comments Other Results/Comments: Vaginal packing was removed. Patient was able to demonstrate ambulation. Patient requested back fill of serrano catheter prior to removal to facilitate v oiding trial. Assessment/Plan - Problem List (1) S/P laparoscopic hysterectomy Impression: POD#1 s/p LAVH and AP repair Doing well Tolerating po and pain well managed. Serrano was backfilled with 300 cc sterile saline. Serrano was removed. Patient was able to void with less than 50% PVR Discharged to home with routine DC instruction FU in one week
== END 2021-07-20 12:58 | disposition home or self-care (01) ==
LOC: SDS 09:37 → MS2 20:21 → SDS 07-20 12:58
PROVIDERS: ATTEND Obstetrics & Gynecology
PROC: 0JQC0ZZ Repair Pelvic Region Subcutaneous Tissue and Fascia, Open Approach (ICD-10-PCS; principal; 2021-07-19 11:00)
PROC: 0UT94ZZ Resection of Uterus, Percutaneous Endoscopic Approach (ICD-10-PCS; 2021-07-19 11:00)
DX: N81.2 Incomplete uterovaginal prolapse (principal); N81.6 Rectocele; E66.9 Obesity, unspecified; Z68.33 Body mass index [BMI] 33.0-33.9, adult; Z90.79 Acquired absence of other genital organ(s); G47.30 Sleep apnea, unspecified
CPT/HCPCS: 36415; 85025

== ENCOUNTER 2021-08-12 09:30 | Outpatient (CLI) | payer OTHER | END 2021-08-12 23:59 | disposition home or self-care (01) | LOC: LAB 09:30 | PROVIDERS: ATTEND Obstetrics & Gynecology | DX: O90.0 Disruption of cesarean delivery wound (principal) | CPT/HCPCS: 87070; 87181; 87205 ==

== ENCOUNTER 2021-08-18 10:14 | Emergency (ER) | payer OTHER ==
--- NOTE | 2021-08-18 10:53 | ED Physician Documentation ---
PD HPI CHEST PAIN - Stated complaint Stated Complaint: CHEST DISCOMFORT - Chief complaint Chief Complaint: Cardiac - Additional information Additional information: Patient is a 41-year-old female presenting to the emergency department with ch est pain. Pain is substernal, began acutely this morning. Recent surgery in the form of a hysterectomy performed approximately 3-4 weeks ago. Patient also reports that her chest pain began shortly after taking a Concerta this morning, medication she Has not been taking regularly. Reports recently quitting smoking 7 months ago but was a longstanding smoker before that. Positive past medical history for hypertension and Graves' disease. Denies any previous history of blood clot, coronary artery disease, dyslipidemia, diabetes. 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 - Present Medications Home Medications: Ambulatory Orders Medication Instructions Recorded Confirmed RX: Omeprazole 10 mg PO DAILY 09/09/19 07/14/21 RX: Cetirizine [ZyrTEC] 10 mg PO DAILY tablet 09/10/19 07/14/21 RX: DULoxetine [Cymbalta] 60 mg PO DAILY capsule 09/10/19 07/14/21 RX: Sertraline [Zoloft] 75 mg PO DAILY tablet 09/10/19 07/14/21 Gabapentin [Neurontin] 600 mg PO BID 07/14/21 07/14/21 Methylphenidate HCl [Concerta] 54 mg PO DAILY 07/14/21 07/14/21 RX: Diclofenac Sodium 75 mg PO BID 07/14/21 07/14/21 RX: Losartan [Cozaar] 50 mg PO DAILY 07/14/21 07/14/21 RX: Acetaminophen [Acetaminophen 1,000 mg PO Q8H PRN #60 tablet 07/20/21 Extra Strength] RX: Docusate Sodium 100Mg Capsule 100 - 200 mg PO BID PRN #60 cap 07/20/21 [Colace 100Mg Capsule] RX: Ibuprofen [Motrin] 600 mg PO Q6H PRN #60 tab 07/20/21 RX: traMADol [Ultram] 50 mg PO Q4-6H #90 tablet 07/20/21 - Allergies Allergies/Adverse Reactions: Allergies Allergy/AdvReac Type Severity Reaction Status Date / Time No Known Drug Allergies Allergy Verified 07/19/21 07:09 - Social History Does the pt smoke?: No Smoking Status: Never smoker Does the pt drink ETOH?: Yes Does the pt have substance abuse?: No - Immunizations Immunizations are current?: Yes - POLST Patient has POLST: No PD ED PE NORMAL - Vitals Vital signs reviewed: Yes - General General: Alert and oriented X 3 - HEENT HEENT: Atraumatic - Neck Neck: Supple, no meningeal sign - Cardiac Cardiac: RRR, No gallop - Respiratory Respiratory: No respiratory distress, Clear bilaterally - Abdomen Abdomen: Normal bowel sounds, Non tender - Female Female : Deferred - Extremities Extremities: Other (Lower extremity edema left greater than right.) Results - Vitals Vitals: Vital Signs - 24 hr 08/18/21 08/18/21 10:15 12:00 Temperature 37.1 C Heart Rate 92 78 Respiratory 18 15 Rate Blood Pressure 154/84 H 129/58 L O2 Saturation 100 100 Oxygen O2 Source Room air - EKG (time done) 1032 Rate: Rate (enter#) (84) Rhythm: NSR [place]: Normal Intervals: Normal [place] QRS: Normal Ischemia: Normal ST segments Other comments: Other comments (S1Q3T3 pattern) - Labs Labs: Laboratory Tests 08/18/21 08/18/21 08/18/21 10:51 10:51 10:51 WBC 5.5 RBC 4.20 Hgb 10.9 L Hct 34.0 L MCV 81.0 MCH 26.0 L MCHC 32.1 RDW 16.3 H Plt Count 331 MPV 9.3 Neut # (Auto) 3.2 Lymph # (Auto) 1.3 L Buchanan # (Auto) 0.4 Eos # (Auto) 0.5 Baso # (Auto) 0.0 Absolute Nucleated RBC 0.00 Nucleated RBC % 0.0 Sodium 134 L Potassium 4.0 Chloride 98 L Carbon Dioxide 24 Anion Gap 12.0 BUN 9 Creatinine 0.7 Estimated GFR (MDRD) 92 Glucose 110 H Calcium 9.6 Total Bilirubin 0.4 AST 26 ALT 30 Alkaline Phosphatase 104 Troponin I High Sens 3.3 Total Protein 8.0 Albumin 4.0 Globulin 4.0 Albumin/Globulin Ratio 1.0 Lipase 27 08/18/21 10:51 WBC RBC Hgb Hct MCV MCH MCHC RDW Plt Count MPV Neut # (Auto) Lymph # (Auto) Buchanan # (Auto) Eos # (Auto) Baso # (Auto) Absolute Nucleated RBC Nucleated RBC % Sodium Potassium Chloride Carbon Dioxide Anion Gap BUN Creatinine Estimated GFR (MDRD) Glucose Calcium Total Bilirubin AST ALT Alkaline Phosphatase Troponin I High Sens Total Protein Albumin Globulin Albumin/Globulin Ratio Lipase 29 PD MEDICAL DECISION MAKING - ED course Complexity details: reviewed results, d/w patient ED course: Patient is 41-year-old female presenting to the emergency department with chest pain in setting of recent hysterectomy. Afebrile, hemodynamic stable on arrival to the emergency department. No reported tachycardia or hemoptysis however patient did have substernal chest pressure as well as S1Q3T3 on her EKG. Her recent surgical history makes Her high risk Wells and it would be inappropriate to time to rule out DVT or PE in this setting Via D-dimer. Did order for ultrasonography of her lower extremitiesWhich was negative for pulmonary embolism. Initial troponin negative. I did order for CTA of the chest however patient elected to leave the emergency department AGAINST MEDICAL ADVICE prior to this study. She reported that she was feeling better and that she did not feel it was necessary. I did express my concern that undiagnosed pulmonary embolism could be seriousAnd potentially deadly and she verbalized understanding of this. Departure - Departure Disposition: Against Medical Advice Clinical Impression: Chest pain Instructions: ED Chest Pain Atypical Unkn Cause Comments: Thank you for allowing us the opportunity to care for you today at [facility]. You are choosing to leave the emergency department AGAINST MEDICAL ADVICE before were able to complete our evaluation. I do of some concern that the chest discomfort you are having could possibly be from a pulmonary emboli. You do have increased risk for this given your recent surgery history. The ultrasound of your legs did not show any blood clot which is reassuring however without an ability to do more testing I cannot tell you for certain whether or not you do or do not in fact have a blood clot in your lungs. Please be aware that this condition if untreated has a potential to be deadly. A recommend that you follow-up with your primary care doctor soon as possible. You're was welcome to return to the emergency departmentAt any time for further testing or treatment and I strongly encourage you to return if you have any new or worsening symptoms.
[2021-08-18 11:01] LABS: BASOPHILS % (AUTO) 0.7 %; EOSINOPHILS # (AUTO) 0.5 10^3/uL (0.0-0.7); EOSINOPHILS % (AUTO) 9.7 %; HGB - HEMOGLOBIN 10.9 g/dL (12.0-16.0); LYMPHOCYTES # (AUTO) 1.3 10^3/uL (1.5-3.5); LYMPHOCYTES % (AUTO) 23.3 %; MEAN CORPUSCULAR HGB CONC 32.1 g/dL (32.0-36.0); MEAN PLATELET VOLUME 9.3 fL (7.9-10.8); MONOCYTES # (AUTO) 0.4 10^3/uL (0.0-1.0); MONOCYTES % (AUTO) 6.9 %; NEUTROPHILS # (AUTO) 3.2 10^3/uL (1.5-6.6); PLT - PLATELET COUNT 331 10^3/uL (130-450); RED CELL DISTRIBUTION WIDTH 16.3 % (12.0-15.0); WHITE BLOOD COUNT 5.5 x10^3/uL (4.8-10.8)
[2021-08-18 11:13] LABS: BILIRUBIN,TOTAL 0.4 mg/dL (0.2-1.0); CALCIUM 9.6 mg/dL (8.5-10.3); CREATININE 0.7 mg/dL (0.4-1.0)
--- NOTE | 2021-08-18 11:14 | XRAY Report ---
PROCEDURE: Chest 1 View X-Ray INDICATIONS: Chest pain TECHNIQUE: One view of the chest was acquired. COMPARISON: Chest x-ray one view, 03/31/2021. FINDINGS: Surgical changes and devices: None. Lungs and pleura: No pleural effusions or pneumothorax. Lungs are clear. Mediastinum: Mediastinal contours appear normal. Heart size is normal. Bones and chest wall: No suspicious bony lesions. Overlying soft tissues appear unremarkable. IMPRESSION: No acute cardiopulmonary disease. Reviewed by: Dinesh Marlow MD on 08/18/2021 11:13 AM PDT Approved by: Dinesh Marlow MD on 08/18/2021 11:13 AM PDT Station ID: [id number]
[2021-08-18] MEDS ORDERED: IOVERSOL 320 100 ML VIAL IVP ONE (11:33)
--- NOTE | 2021-08-18 12:51 | Ultrasound Report ---
PROCEDURE: Duplex Ext Veins Bilateral INDICATIONS: Bilateral lower extremity edema. TECHNIQUE: Real-time imaging, as well as color and pulse Doppler interrogation, were performed of the deep veins of both legs from the inguinal ligament to the popliteal fossa. COMPARISON: None FINDINGS: The deep veins are normally compressible, and free of intraluminal thrombus. Color and pu lse Doppler demonstrate normal phasic intravascular flow. There is normal augmentation response to d istal compression There is a borderline enlarged right groin lymph node. Overall soft tissue edema is present most nota ble at the ankle. IMPRESSION: No deep venous thrombosis. Borderline enlarged right groin lymph node, overall nonspecific. This could be reactive in nature. Reviewed by: Kristi Casarez MD on 08/18/2021 12:49 PM PDT Approved by: Kristi Casarez MD on 08/18/2021 12:49 PM PDT Station ID: [id number]
[2021-08-18 13:22] VITALS: BP 145/92
== END 2021-08-18 13:31 | disposition left against medical advice (07) ==
LOC: ED 10:14
DX: R07.9 Chest pain, unspecified (principal); Z87.891 Personal history of nicotine dependence; I10 Essential (primary) hypertension
CPT/HCPCS: 36415; 71045; 80053; 83690; 84484; 85025; 93005; 93970; 99281; 99284; Q9967